=== PATIENT | female | born 1965 | race African-American/Black ===

== ENCOUNTER 2019-11-12 08:45 | Inpatient (IN) | payer MEDICARE, MEDICAID ==
[~2019-11-12] VITALS: Ht 177.8 cm; Wt 133.5 kg
[~2019-11-12 08:45] MED LIST: ALBU8HFA IH; AMLO10TA7 PO; FLUO-191 PO; LISI-661 PO; METO50 PO
[2019-11-12] MEDS ORDERED: IPRATROPIUM BROMIDE 0.5 MG/2.5 ML NEB SOLUTION NEB ONE ×3 (09:00→10:45)
[2019-11-12] MEDS ORDERED: ALBUTEROL SULFATE 2.5 MG/0.5 ML NEB SOLUTION NEB ONE (09:00)
[2019-11-12] MEDS ORDERED: ALBUTEROL SULFATE 5 MG/ML 20 ML NEB SOLN [BULK] NEB ONE ×2 (09:15→10:45)
[2019-11-12] MEDS ORDERED: MethylPREDNISolone SOD SUCC 125 MG/2 ML VIAL IVP ONE (10:45)
[2019-11-12] MEDS ORDERED: MAGNESIUM SULFATE 2 GM/WATER 50 ML IV ONE (11:00)
[2019-11-12 11:04] LABS: BASOPHILS % (AUTO) 1.4 % (0.0-2.0); HEMATOCRIT 37.4 % (36-46); HEMOGLOBIN 11.7 g/dL (12.0-16.0); LYMPHOCYTES # (AUTO) 3.6 K/uL (1.0-4.8); LYMPHOCYTES % (AUTO) 38.4 % (22.0-44.0); MEAN CORPUSCULAR HEMOGLOBIN 25.2 pg (26.0-34.0); MEAN CORPUSCULAR HGB CONC 31.4 G/dL (31.0-37.0); MEAN CORPUSCULAR VOLUME 80 fL (80-100); MONOCYTES # (AUTO) 0.8 K/uL (0.1-1.0); NEUTROPHILS # (AUTO) 4.9 K/uL (1.8-7.7); NEUTROPHILS % (AUTO) 51.2 % (40.0-70.0); PLATELET COUNT (AUTO) 246 K/uL (150-450); RED BLOOD CELL COUNT(AUTO) 4.65 MIL/uL (4.00-5.20)
[2019-11-12 11:13] LABS: CALCIUM, TOTAL 9.5 mg/dL (8.8-10.5); CREATININE 1.58 mg/dL (0.60-1.30); POTASSIUM 3.4 mmol/L (3.5-5.1)
[2019-11-12 11:18] LABS: ALBUMIN 3.6 g/dL (3.4-5.0); BILIRUBIN,TOTAL 0.7 mg/dL (0.1-1.0); TOTAL PROTEIN, SERUM 7.7 g/dL (6.4-8.2)
[2019-11-12] MEDS ORDERED: DOXYCYCLINE HYCLATE 100 MG in DEXTROSE 5%-WATER 100 ML IV ONE (12:00)
[2019-11-12] MEDS ORDERED: CefTRIAXone 1 GM/DEXTROSE 50 ML IV ONE (12:00)
[2019-11-12] MEDS ORDERED: ASPIRIN 325 MG EC TABLET PO ONE (12:15)
[2019-11-12 12:20] LABS: INFLUENZA TYPE A NEGATIVE FOR TYPE A (NEGATIVE); INFLUENZA TYPE B NEGATIVE FOR TYPE B (NEGATIVE)
[2019-11-12] MEDS ORDERED: BISACODYL 10 MG RECTAL RECTAL SUPPOSITORY PR PRN (13:00)
[2019-11-12] MEDS ORDERED: LORazepam 2 MG/ML VIAL IVP PRN (13:00)
[2019-11-12] MEDS ORDERED: POTASSIUM CHLORIDE 10% 40 MEQ/30 ML LIQUID UDCUP PO ONE (13:00)
[2019-11-12] MEDS ORDERED: ACETAMINOPHEN 325 MG TABLET PO PRN (13:00)
[2019-11-12] MEDS: HEPARIN SODIUM,PORCINE 5,000 UNITS/ML VIAL SQ SCH ×2 (15:29→23:08)
[2019-11-12 17:12] LABS: ABG A-A DIFF O2 32.8 mmHg (10-20.0); ABG BASE EXCESS -11.2 mmol/L (-2.0-3.0); ABG CARBOXYHEMOGLOBIN 0.7 % (0.0-1.5); ABG HCO3 16.6 mmol/L (22.0-26.0); ABG METHEMOGLOBIN 0.3 % (0.0-1.5); ABG OXYGEN CONTENT 16.4 mL/dL (15.0-23.0); ABG OXYGEN SATURATION 95.6 % (95.0-98.0); ABG OXYHEMOGLOBIN 94.6 % (94.0-100.0); ABG PCO2 29 mmHg (35-45); ABG PH 7.328 (7.35-7.450); ABG TOTAL HEMOGLOBIN 12.3 G/dL (12.0-18.0); O2 DEVICE,BLOOD GAS ROOM AIR (ROOM AIR); PO2, ARTERIAL BG 82.6 mmHg (84.0-92.0); SITE, BLOOD GAS RT RADIAL; SOURCE, BLOOD GAS ARTERIAL; TEMPERATURE, FAHRENHEIT, BG 98.6 FAHREN (96.0-98.6)
[2019-11-12] MEDS: MethylPREDNISolone SOD SUCC 125 MG/2 ML VIAL IVP SCH ×2 (18:12→23:07)
[2019-11-12] MEDS: ALBUTEROL SULFATE 2.5 MG/0.5 ML NEB SOLUTION NEB PRN (21:37)
[2019-11-12] MEDS: IPRATROPIUM BROMIDE 0.5 MG/2.5 ML NEB SOLUTION NEB PRN (21:37)
[2019-11-12 21:57] VITALS: BP 156/82
[2019-11-12 23:43] VITALS: BP 153/80
[2019-11-13] MEDS: IPRATROPIUM BROMIDE 0.5 MG/2.5 ML NEB SOLUTION NEB PRN ×2 (02:52→14:25)
[2019-11-13] MEDS: ALBUTEROL SULFATE 2.5 MG/0.5 ML NEB SOLUTION NEB PRN ×2 (02:52→14:25)
[2019-11-13 03:29] VITALS: BP 144/83
[2019-11-13] MEDS: MethylPREDNISolone SOD SUCC 125 MG/2 ML VIAL IVP SCH ×2 (06:16→11:53)
[2019-11-13] MEDS ORDERED: PNEUMOCOCCAL VACCINE POLYVALENT 0.5 ML VIAL [PPSV23] IM ONE (07:30)
[2019-11-13] MEDS ORDERED: INFLUENZA VIRUS VACCINE QVS 2019-20 (3YR+)/PF 60 MCG/0.5 ML SYRINGE IM ONE (07:30)
[2019-11-13 07:36] VITALS: BP 160/94
[2019-11-13] MEDS: FAMOTIDINE 20 MG TABLET PO SCH (08:06)
[2019-11-13] MEDS: ASPIRIN 81 MG CHEWABLE TABLET PO SCH (08:07)
[2019-11-13] MEDS: HEPARIN SODIUM,PORCINE 5,000 UNITS/ML VIAL SQ SCH ×2 (08:11→16:00)
[2019-11-13 11:23] VITALS: BP 162/108
[2019-11-13] MEDS: CefTRIAXone 1 GM/DEXTROSE 50 ML IV SCH (11:53)
[2019-11-13] MEDS ORDERED: FUROSEMIDE 20 MG/2 ML VIAL IVP SCH (12:45)
[2019-11-13] MEDS: CARVEDILOL 6.25 MG TABLET PO SCH ×2 (14:00→20:42)
[2019-11-13] MEDS: AZITHROMYCIN 500 MG/NS 250 ML IV SCH (14:02)
[2019-11-13 15:00] VITALS: BP 146/106
[2019-11-13] MEDS ORDERED: POTASSIUM CHLORIDE 20 MEQ ER TABLET PO PRN (17:45)
[2019-11-13] MEDS ORDERED: POTASSIUM CHL 10 MEQ/WATER 50 ML IV PRN (17:45)
[2019-11-13] MEDS: MethylPREDNISolone SOD SUCC 40 MG/ML VIAL IVP SCH (18:03)
[2019-11-13 19:52] VITALS: BP 133/90
[2019-11-13] MEDS: ALBUTEROL SULFATE 2.5 MG/0.5 ML NEB SOLUTION NEB SCH (20:07)
[2019-11-13] MEDS: IPRATROPIUM BROMIDE 0.5 MG/2.5 ML NEB SOLUTION NEB SCH (20:07)
[2019-11-13] MEDS: FUROSEMIDE 40 MG/4 ML VIAL IVP SCH (20:42)
[2019-11-13 23:37] VITALS: BP 146/92
[2019-11-14] MEDS: MethylPREDNISolone SOD SUCC 40 MG/ML VIAL IVP SCH ×5 (00:22→23:11)
[2019-11-14] MEDS: HEPARIN SODIUM,PORCINE 5,000 UNITS/ML VIAL SQ SCH ×3 (00:23→21:31)
[2019-11-14] MEDS: IPRATROPIUM BROMIDE 0.5 MG/2.5 ML NEB SOLUTION NEB SCH ×4 (00:41→19:38)
[2019-11-14] MEDS: ALBUTEROL SULFATE 2.5 MG/0.5 ML NEB SOLUTION NEB SCH ×4 (00:41→19:38)
[2019-11-14 04:11] VITALS: BP 145/93
[2019-11-14 06:46] LABS: BASOPHILS % (AUTO) 0.7 % (0.0-2.0); EOSINOPHILS % (AUTO) 0 % (1.0-6.0); HEMATOCRIT 33.6 % (36-46); HEMOGLOBIN 10.8 g/dL (12.0-16.0); LYMPHOCYTES # (AUTO) 1.5 K/uL (1.0-4.8); MEAN CORPUSCULAR HEMOGLOBIN 25.5 pg (26.0-34.0); MEAN CORPUSCULAR HGB CONC 32.2 G/dL (31.0-37.0); MEAN CORPUSCULAR VOLUME 79 fL (80-100); MONOCYTES # (AUTO) 0.4 K/uL (0.1-1.0); MONOCYTES % (AUTO) 2.4 % (2.0-9.0); NEUTROPHILS # (AUTO) 14.7 K/uL (1.8-7.7); PLATELET COUNT (AUTO) 277 K/uL (150-450); RED BLOOD CELL COUNT(AUTO) 4.23 MIL/uL (4.00-5.20); RED CELL DISTRIBUTION WIDTH 15.4 % (11.5-14.5)
[2019-11-14 06:57] LABS: CALCIUM, TOTAL 9.5 mg/dL (8.8-10.5); CREATININE 1.8 mg/dL (0.60-1.30); POTASSIUM 4.6 mmol/L (3.5-5.1)
[2019-11-14 07:07] LABS: NEUTROPHILS % (AUTO) 87.9 % (40.0-70.0)
[2019-11-14 08:01] VITALS: BP 128/67
[2019-11-14] MEDS: CARVEDILOL 6.25 MG TABLET PO SCH ×2 (08:41→21:31)
[2019-11-14] MEDS: ASPIRIN 81 MG CHEWABLE TABLET PO SCH (08:42)
[2019-11-14] MEDS: FUROSEMIDE 40 MG/4 ML VIAL IVP SCH (08:42)
[2019-11-14] MEDS: FAMOTIDINE 20 MG TABLET PO SCH (08:42)
[2019-11-14 11:38] VITALS: BP 141/94
[2019-11-14] MEDS: CefTRIAXone 1 GM/DEXTROSE 50 ML IV SCH (12:22)
[2019-11-14] MEDS: AZITHROMYCIN 500 MG/NS 250 ML IV SCH (13:56)
[2019-11-14 16:06] VITALS: BP 132/90
[2019-11-14 19:35] VITALS: BP 147/96
[2019-11-14 23:41] VITALS: BP 127/90
[2019-11-15] MEDS: IPRATROPIUM BROMIDE 0.5 MG/2.5 ML NEB SOLUTION NEB SCH ×4 (01:05→20:11)
[2019-11-15] MEDS: ALBUTEROL SULFATE 2.5 MG/0.5 ML NEB SOLUTION NEB SCH ×4 (01:05→20:11)
[2019-11-15 04:24] VITALS: BP 154/94
[2019-11-15] MEDS: MethylPREDNISolone SOD SUCC 40 MG/ML VIAL IVP SCH (06:02)
[2019-11-15 06:44] LABS: BASOPHILS % (AUTO) 0.6 % (0.0-2.0); EOSINOPHILS % (AUTO) 0 % (1.0-6.0); HEMATOCRIT 34.3 % (36-46); HEMOGLOBIN 10.9 g/dL (12.0-16.0); LYMPHOCYTES # (AUTO) 1.4 K/uL (1.0-4.8); LYMPHOCYTES % (AUTO) 10.4 % (22.0-44.0); MEAN CORPUSCULAR HEMOGLOBIN 25.1 pg (26.0-34.0); MEAN CORPUSCULAR HGB CONC 31.9 G/dL (31.0-37.0); MEAN CORPUSCULAR VOLUME 79 fL (80-100); MONOCYTES # (AUTO) 0.4 K/uL (0.1-1.0); MONOCYTES % (AUTO) 3.3 % (2.0-9.0); NEUTROPHILS # (AUTO) 11.6 K/uL (1.8-7.7); NEUTROPHILS % (AUTO) 85.7 % (40.0-70.0); PLATELET COUNT (AUTO) 265 K/uL (150-450); RED BLOOD CELL COUNT(AUTO) 4.35 MIL/uL (4.00-5.20); RED CELL DISTRIBUTION WIDTH 15.3 % (11.5-14.5)
[2019-11-15 07:10] LABS: CALCIUM, TOTAL 9.1 mg/dL (8.8-10.5); CREATININE 1.79 mg/dL (0.60-1.30); POTASSIUM 4.2 mmol/L (3.5-5.1)
[2019-11-15 07:33] LABS: PLATELET MORPHOLOGY COMMENT GIANT PLTS PRESENT
[2019-11-15 08:29] VITALS: BP 140/97
[2019-11-15] MEDS ORDERED: FUROSEMIDE 40 MG/4 ML VIAL IVP SCH (09:00)
[2019-11-15] MEDS: ASPIRIN 81 MG CHEWABLE TABLET PO SCH (09:28)
[2019-11-15] MEDS: HEPARIN SODIUM,PORCINE 5,000 UNITS/ML VIAL SQ SCH ×2 (09:28→21:25)
[2019-11-15] MEDS: FAMOTIDINE 20 MG TABLET PO SCH (09:28)
[2019-11-15] MEDS: CARVEDILOL 6.25 MG TABLET PO SCH (09:28)
[2019-11-15] MEDS: CefTRIAXone 1 GM/DEXTROSE 50 ML IV SCH (11:05)
[2019-11-15 11:59] VITALS: BP 145/92
[2019-11-15] MEDS: AZITHROMYCIN 500 MG/NS 250 ML IV SCH (13:00)
[2019-11-15 15:54] VITALS: BP 144/94
[2019-11-15 19:38] VITALS: BP 140/89
[2019-11-15] MEDS: CARVEDILOL 12.5 MG TABLET PO SCH (21:26)
[2019-11-15] MEDS: FUROSEMIDE 40 MG TABLET PO SCH (21:26)
[2019-11-15 23:19] VITALS: BP 137/81
[2019-11-16] MEDS: ALBUTEROL SULFATE 2.5 MG/0.5 ML NEB SOLUTION NEB SCH ×2 (03:07→12:32)
[2019-11-16] MEDS: IPRATROPIUM BROMIDE 0.5 MG/2.5 ML NEB SOLUTION NEB SCH ×2 (03:07→12:32)
[2019-11-16 05:23] VITALS: BP 128/92
[2019-11-16 07:06] LABS: BILIRUBIN,TOTAL 0.3 mg/dL (0.1-1.0); CALCIUM, TOTAL 9.2 mg/dL (8.8-10.5); CREATININE 1.62 mg/dL (0.60-1.30); POTASSIUM 3.6 mmol/L (3.5-5.1); TOTAL PROTEIN, SERUM 6.6 g/dL (6.4-8.2)
[2019-11-16 08:13] VITALS: BP 130/76
[2019-11-16] MEDS: CARVEDILOL 12.5 MG TABLET PO SCH (08:19)
[2019-11-16] MEDS: FAMOTIDINE 20 MG TABLET PO SCH (08:19)
[2019-11-16] MEDS: FUROSEMIDE 40 MG TABLET PO SCH (08:19)
[2019-11-16] MEDS: HEPARIN SODIUM,PORCINE 5,000 UNITS/ML VIAL SQ SCH (08:19)
[2019-11-16] MEDS: ASPIRIN 81 MG CHEWABLE TABLET PO SCH (08:20)
[2019-11-16 11:04] VITALS: BP 139/72
[2019-11-16] MEDS: CefTRIAXone 1 GM/DEXTROSE 50 ML IV SCH (12:10)
[2019-11-16] MEDS ORDERED: FURO40 PO (12:18)
[2019-11-16] MEDS ORDERED: CARV12 PO (12:18)
[2019-11-16] MEDS ORDERED: ALBU8HFA IH (12:19)
[2019-11-16] MEDS ORDERED: ASPI81 PO (12:19)
[2019-11-16] MEDS: AZITHROMYCIN 500 MG/NS 250 ML IV SCH (13:00)
== END 2019-11-16 14:00 | disposition home or self-care (01) | DRG 917 ==
LOC: EMS 08:46 → 5S 21:00
PROVIDERS: ADMIT Internal Medicine; ATTEND Internal Medicine
DX: T43.621A Poisoning by amphetamines, accidental (unintentional), initial encounter (principal); J18.9 Pneumonia, unspecified organism; J96.01 Acute respiratory failure with hypoxia; I50.43 Acute on chronic combined systolic (congestive) and diastolic (congestive) heart failure; I13.0 Hypertensive heart and chronic kidney disease with heart failure and stage 1 through stage 4 chronic kidney disease, or unspecified chronic kidney disease; J45.901 Unspecified asthma with (acute) exacerbation; N17.9 Acute kidney failure, unspecified; J91.8 Pleural effusion in other conditions classified elsewhere; J44.0 Chronic obstructive pulmonary disease with (acute) lower respiratory infection; J44.1 Chronic obstructive pulmonary disease with (acute) exacerbation; I42.8 Other cardiomyopathies; R74.0 Nonspecific elevation of levels of transaminase and lactic acid dehydrogenase [LDH]; E78.5 Hyperlipidemia, unspecified; E11.22 Type 2 diabetes mellitus with diabetic chronic kidney disease; N18.9 Chronic kidney disease, unspecified; E66.01 Morbid (severe) obesity due to excess calories; F15.90 Other stimulant use, unspecified, uncomplicated; F32.9 Major depressive disorder, single episode, unspecified; F41.9 Anxiety disorder, unspecified; Z98.51 Tubal ligation status; Z83.3 Family history of diabetes mellitus; Z82.49 Family history of ischemic heart disease and other diseases of the circulatory system; Z87.891 Personal history of nicotine dependence; Z99.81 Dependence on supplemental oxygen; Z91.19 Patient's noncompliance with other medical treatment and regimen; Y92.89 Other specified places as the place of occurrence of the external cause
CPT/HCPCS: 71250; 82805; 87040; 87804; 93005; 93306; 94640; 99291; J0456; J0696; J1644; J1940; J2920; J2930; J3475; J3490; J7060

== ENCOUNTER 2020-04-05 09:19 | Emergency (ER) | payer BC, MEDICAID ==
[~2020-04-05] VITALS: Ht 170.2 cm; Wt 136.4 kg
[~2020-04-05 09:19] MED LIST changes: -AMLO10TA7 PO; +ASPI-728 PO; +CARV12 PO; +CEFU250T87 PO; +FURO40 PO; +LISI-660 PO; -LISI-661 PO; -METO50 PO
[2020-04-05 10:50] LABS: GLUCOSE,POINT OF CARE 265 MG/DL (70-110)
[2020-04-05 10:52] VITALS: BP 157/98
[2020-04-05 12:16] LABS: BASOPHILS % (AUTO) 0.5 % (0.0-2.0); EOSINOPHILS % (AUTO) 3.6 % (1.0-6.0); HEMATOCRIT 34.3 % (36-46); HEMOGLOBIN 10.9 g/dL (12.0-16.0); LYMPHOCYTES # (AUTO) 2.5 K/uL (1.0-4.8); LYMPHOCYTES % (AUTO) 27.5 % (22.0-44.0); MEAN CORPUSCULAR HEMOGLOBIN 26.4 pg (26.0-34.0); MEAN CORPUSCULAR HGB CONC 31.9 G/dL (31.0-37.0); MEAN CORPUSCULAR VOLUME 83 fL (80-100); MONOCYTES # (AUTO) 0.7 K/uL (0.1-1.0); MONOCYTES % (AUTO) 8.2 % (2.0-9.0); NEUTROPHILS # (AUTO) 5.4 K/uL (1.8-7.7); NEUTROPHILS % (AUTO) 60.2 % (40.0-70.0); PLATELET COUNT (AUTO) 280 K/uL (150-450); RED BLOOD CELL COUNT(AUTO) 4.14 MIL/uL (4.00-5.20); RED CELL DISTRIBUTION WIDTH 16.4 % (11.5-14.5)
[2020-04-05 12:26] LABS: CALCIUM, TOTAL 8.9 mg/dL (8.8-10.5); CREATININE 1.43 mg/dL (0.60-1.30); POTASSIUM 3.7 mmol/L (3.5-5.1)
[2020-04-05 12:32] LABS: APPEARANCE,URINE CLOUDY (CLEAR); BILIRUBIN,URINE NEGATIVE (NEGATIVE); GLUCOSE, URINE (UA) NEGATIVE (NEGATIVE); KETONES,URINE NEGATIVE (NEGATIVE); LEUKOCYTE ESTERASE ,URINE SMALL (NEGATIVE); NITRATE,URINE NEGATIVE (NEGATIVE); OCCULT BLOOD,URINE TRACE (NEGATIVE); PROTEIN,URINE POS 1+ (NEGATIVE)
[2020-04-05 12:32] LABS: ALBUMIN 3.2 g/dL (3.4-5.0); BILIRUBIN,TOTAL 1.1 mg/dL (0.1-1.0); TOTAL PROTEIN, SERUM 7.2 g/dL (6.4-8.2)
[2020-04-05 12:49] LABS: BACTERIA,URINE Moderate /HPF (None Seen); SQUAMOUS EPITHELIAL CELL,UR Many /LPF (None Seen)
[2020-04-05 14:03] LABS: D-DIMER 1.02 mg/L FEU (0.00-0.50)
[2020-04-05 14:06] LABS: C-REACTIVE PROTEIN QUANT 0.64 mg/dL (0.00-0.30)
== END 2020-04-05 14:20 | disposition left against medical advice (07) ==
LOC: EMS 09:20
DX: D64.9 Anemia, unspecified (principal); R79.89 Other specified abnormal findings of blood chemistry; R06.03 Acute respiratory distress; Z03.818 Encounter for observation for suspected exposure to other biological agents ruled out; F32.9 Major depressive disorder, single episode, unspecified; I11.9 Hypertensive heart disease without heart failure; Z87.891 Personal history of nicotine dependence
CPT/HCPCS: 82728; 83615; 85379; 85384; 86140; 87086; 93005

== ENCOUNTER 2020-04-29 00:41 | Inpatient (IN) | payer MEDICARE, MEDICAID ==
[~2020-04-29] VITALS: Ht 172.7 cm; Wt 130.8 kg
[2020-04-29] MEDS ORDERED: ALBUTEROL SULFATE HFA 90 MCG/PUFF 8 GM INHALER IH ONE (01:30)
[2020-04-29 02:02] LABS: ABG A-A DIFF O2 181.8 mmHg (10-20.0); ABG BASE EXCESS -0.2 mmol/L (-2.0-3.0); ABG CARBOXYHEMOGLOBIN 0.8 % (0.0-1.5); ABG HCO3 24.5 mmol/L (22.0-26.0); ABG METHEMOGLOBIN 0.2 % (0.0-1.5); ABG OXYGEN CONTENT 16.2 mL/dL (15.0-23.0); ABG OXYGEN SATURATION 96.4 % (95.0-98.0); ABG OXYHEMOGLOBIN 95.4 % (94.0-100.0); ABG PCO2 37 mmHg (35-45); ABG PH 7.429 (7.35-7.450); O2 DEVICE,BLOOD GAS CANNULA (ROOM AIR); PO2, ARTERIAL BG 89.4 mmHg (84.0-92.0); SITE, BLOOD GAS LFT RADIAL; SOURCE, BLOOD GAS ARTERIAL; TEMPERATURE, FAHRENHEIT, BG 98.6 FAHREN (96.0-98.6)
[2020-04-29 02:03] LABS: CALCIUM, TOTAL 8.7 mg/dL (8.8-10.5); CREATININE 1.57 mg/dL (0.60-1.30); POTASSIUM 4.1 mmol/L (3.5-5.1)
[2020-04-29 02:07] LABS: EOSINOPHILS % (AUTO) 1.6 % (1.0-6.0); HEMATOCRIT 36.9 % (36-46); HEMOGLOBIN 11.3 g/dL (12.0-16.0); LYMPHOCYTES # (AUTO) 1.5 K/uL (1.0-4.8); LYMPHOCYTES % (AUTO) 17.9 % (22.0-44.0); MEAN CORPUSCULAR HEMOGLOBIN 25.9 pg (26.0-34.0); MEAN CORPUSCULAR HGB CONC 30.8 G/dL (31.0-37.0); MEAN CORPUSCULAR VOLUME 84 fL (80-100); MONOCYTES # (AUTO) 0.9 K/uL (0.1-1.0); MONOCYTES % (AUTO) 11.3 % (2.0-9.0); NEUTROPHILS # (AUTO) 5.5 K/uL (1.8-7.7); NEUTROPHILS % (AUTO) 68.2 % (40.0-70.0); PLATELET COUNT (AUTO) 236 K/uL (150-450); RED BLOOD CELL COUNT(AUTO) 4.37 MIL/uL (4.00-5.20)
[2020-04-29 02:20] LABS: ALBUMIN 3.3 g/dL (3.4-5.0); BILIRUBIN,TOTAL 1.6 mg/dL (0.1-1.0); C-REACTIVE PROTEIN QUANT 0.72 mg/dL (0.00-0.30); TOTAL PROTEIN, SERUM 7.2 g/dL (6.4-8.2)
[2020-04-29] MEDS ORDERED: ASPIRIN 81 MG CHEWABLE TABLET PO ONE (02:30)
[2020-04-29] MEDS ORDERED: FUROSEMIDE 40 MG/4 ML VIAL IVP ONE (02:45)
[2020-04-29] MEDS ORDERED: 0.9% SODIUM CHLORIDE 10 ML SYRINGE IVP PRN (03:00)
[2020-04-29] MEDS ORDERED: ACETAMINOPHEN 325 MG TABLET PO PRN (03:00)
[2020-04-29 03:21] LABS: AMPHET/METH SCREEN,URINE NEGATIVE (NEGATIVE); BARBITURATE SCREEN, URINE NEGATIVE (NEGATIVE); BENZODIAZEPINES SCREEN,URINE NEGATIVE (NEGATIVE); CANNABINOID SCREEN,URINE NEGATIVE (NEGATIVE); COCAINE SCREEN,URINE NEGATIVE (NEGATIVE); METHADONE SCREEN, URINE NEGATIVE (NEGATIVE); OPIATE SCREEN,URINE NEGATIVE (NEGATIVE)
[2020-04-29 03:36] LABS: PHENCYCLIDINE SCREEN,URINE NEGATIVE (NEGATIVE)
[2020-04-29 06:18] VITALS: BP 163/96
[2020-04-29] MEDS ORDERED: DEXTROSE 50%-WATER 25 GM/50 ML SYRINGE IVP PRN (08:15)
[2020-04-29 09:20] VITALS: BP 158/99
[2020-04-29] MEDS: FUROSEMIDE 20 MG/2 ML VIAL IVP SCH ×2 (11:02→20:11)
[2020-04-29] MEDS: ASPIRIN 81 MG CHEWABLE TABLET PO SCH (11:02)
[2020-04-29] MEDS: DOCUSATE SODIUM 100 MG CAPSULE PO SCH ×2 (11:02→20:11)
[2020-04-29] MEDS: CARVEDILOL 6.25 MG TABLET PO SCH ×2 (11:02→20:11)
[2020-04-29] MEDS: LOSARTAN POTASSIUM 25 MG TABLET PO SCH ×2 (11:03→20:11)
[2020-04-29] MEDS: FAMOTIDINE 20 MG TABLET PO SCH (11:03)
[2020-04-29 12:29] VITALS: BP 111/84
[2020-04-29] MEDS: INSULIN LISPRO 100 UNITS/ML SQ PRN ×3 (13:36→20:45)
[2020-04-29 16:24] VITALS: BP 138/93
[2020-04-29] MEDS: HEPARIN SODIUM,PORCINE 5,000 UNITS/ML VIAL SQ SCH (17:56)
[2020-04-29 19:48] LABS: GLUCOMETER DEV NAME(LOC) 5S.2A; GLUCOSE,POINT OF CARE 174 MG/DL (70-110)
[2020-04-29 20:33] LABS: GLUCOMETER DEV NAME(LOC) 5N.3; GLUCOSE,POINT OF CARE 204 MG/DL (70-110)
[2020-04-29 20:33] LABS: GLUCOMETER DEV NAME(LOC) 5N.3; GLUCOSE,POINT OF CARE 211 MG/DL (70-110)
[2020-04-29 20:45] VITALS: BP 150/111
[2020-04-30] VITALS (7 sets, daily range): BP systolic 120–156; BP diastolic 9–99
[2020-04-30] MEDS: ACETAMINOPHEN 325 MG TABLET PO PRN ×3 (01:17→21:25)
[2020-04-30] MEDS: INSULIN LISPRO 100 UNITS/ML SQ PRN ×3 (05:32→21:23)
[2020-04-30 06:10] LABS: GLUCOMETER DEV NAME(LOC) 5S.2A; GLUCOSE,POINT OF CARE 196 MG/DL (70-110)
[2020-04-30 06:51] LABS: GLUCOMETER DEV NAME(LOC) 5N.3; GLUCOSE,POINT OF CARE 193 MG/DL (70-110)
[2020-04-30] MEDS: FUROSEMIDE 20 MG/2 ML VIAL IVP SCH ×2 (08:29→21:25)
[2020-04-30] MEDS: DOCUSATE SODIUM 100 MG CAPSULE PO SCH ×2 (08:30→21:25)
[2020-04-30] MEDS: HEPARIN SODIUM,PORCINE 5,000 UNITS/ML VIAL SQ SCH ×3 (08:30→16:00)
[2020-04-30] MEDS: CARVEDILOL 6.25 MG TABLET PO SCH ×2 (08:30→21:25)
[2020-04-30] MEDS: ASPIRIN 81 MG CHEWABLE TABLET PO SCH (08:30)
[2020-04-30] MEDS: LOSARTAN POTASSIUM 25 MG TABLET PO SCH ×2 (08:30→21:26)
[2020-04-30] MEDS: FAMOTIDINE 20 MG TABLET PO SCH (08:31)
[2020-04-30] MEDS: ALPRAZolam 0.5 MG TABLET PO PRN (16:00)
[2020-05-01] VITALS (8 sets, daily range): BP systolic 102–150; BP diastolic 62–97
[2020-05-01] MEDS: HEPARIN SODIUM,PORCINE 5,000 UNITS/ML VIAL SQ SCH ×2 (00:13→08:48)
[2020-05-01] MEDS: ALPRAZolam 0.5 MG TABLET PO PRN ×3 (00:18→20:34)
[2020-05-01] MEDS: INSULIN LISPRO 100 UNITS/ML SQ PRN ×3 (05:46→21:03)
[2020-05-01 07:46] LABS: GLUCOMETER DEV NAME(LOC) 5N.3; GLUCOSE,POINT OF CARE 176 MG/DL (70-110)
[2020-05-01 07:47] LABS: GLUCOMETER DEV NAME(LOC) 5N.3; GLUCOSE,POINT OF CARE 148 MG/DL (70-110)
[2020-05-01 07:47] LABS: GLUCOMETER DEV NAME(LOC) 5N.3; GLUCOSE,POINT OF CARE 176 MG/DL (70-110)
[2020-05-01 08:31] LABS: APPEARANCE,URINE CLOUDY (CLEAR); BILIRUBIN,URINE NEGATIVE (NEGATIVE); GLUCOSE, URINE (UA) NEGATIVE (NEGATIVE); KETONES,URINE NEGATIVE (NEGATIVE); LEUKOCYTE ESTERASE ,URINE TRACE (NEGATIVE); NITRATE,URINE NEGATIVE (NEGATIVE); OCCULT BLOOD,URINE MODERATE (NEGATIVE); PROTEIN,URINE SEE CONFIRM (NEGATIVE)
[2020-05-01 08:42] LABS: SULFOSALICYLIC ACID,URINE 3+ (Negative)
[2020-05-01 08:43] LABS: AMORPHOUS SEDIMENT,UR Moderate /LPF (None Seen); BACTERIA,URINE None Seen /HPF (None Seen); SQUAMOUS EPITHELIAL CELL,UR Moderate /LPF (None Seen); WBC,URINE 0-2 /HPF (0-5)
[2020-05-01] MEDS: FAMOTIDINE 20 MG TABLET PO SCH (08:48)
[2020-05-01] MEDS: ASPIRIN 81 MG CHEWABLE TABLET PO SCH (08:49)
[2020-05-01] MEDS: LOSARTAN POTASSIUM 25 MG TABLET PO SCH ×2 (08:49→20:34)
[2020-05-01] MEDS: DOCUSATE SODIUM 100 MG CAPSULE PO SCH ×2 (08:49→21:00)
[2020-05-01] MEDS: FUROSEMIDE 20 MG/2 ML VIAL IVP SCH (08:49)
[2020-05-01] MEDS: CARVEDILOL 6.25 MG TABLET PO SCH ×2 (08:49→20:34)
[2020-05-01] MEDS ORDERED: ASPIRIN 81 MG CHEWABLE TABLET PO SCH (09:00)
[2020-05-01] MEDS ORDERED: CefTRIAXone 1 GM/DEXTROSE 50 ML IV SCH (10:00)
[2020-05-01] MEDS ORDERED: SODIUM CHLORIDE 0.9% 250 ML IV ONE ×2 (10:48→22:25)
[2020-05-01 10:58] LABS: D-DIMER 3.05 mg/L FEU (0.00-0.50)
[2020-05-01] MEDS ORDERED: HEPARIN SODIUM,PORCINE 5,000 UNITS/ML VIAL IVP PRN (11:30)
[2020-05-01 11:37] LABS: C-REACTIVE PROTEIN QUANT 2.25 mg/dL (0.00-0.30)
[2020-05-01 12:20] LABS: BASOPHILS % (AUTO) 0.8 % (0.0-2.0); EOSINOPHILS % (AUTO) 0 % (1.0-6.0); HEMATOCRIT 36.6 % (36-46); HEMOGLOBIN 11.5 g/dL (12.0-16.0); INR 1.2 (0.9-1.1); LYMPHOCYTES # (AUTO) 1.6 K/uL (1.0-4.8); LYMPHOCYTES % (AUTO) 28.1 % (22.0-44.0); MEAN CORPUSCULAR HEMOGLOBIN 26.4 pg (26.0-34.0); MEAN CORPUSCULAR HGB CONC 31.6 G/dL (31.0-37.0); MEAN CORPUSCULAR VOLUME 84 fL (80-100); MONOCYTES # (AUTO) 0.6 K/uL (0.1-1.0); MONOCYTES % (AUTO) 11.2 % (2.0-9.0); NEUTROPHILS # (AUTO) 3.3 K/uL (1.8-7.7); NEUTROPHILS % (AUTO) 59.9 % (40.0-70.0); PLATELET COUNT (AUTO) 171 K/uL (150-450); PROTHROMBIN TIME 11.8 SEC (9.4-11.6); RED BLOOD CELL COUNT(AUTO) 4.37 MIL/uL (4.00-5.20); RED CELL DISTRIBUTION WIDTH 18.1 % (11.5-14.5)
[2020-05-01] MEDS: DEXAMETHASONE SOD PHOS 4 MG/ML VIAL IVP SCH (12:28)
[2020-05-01 13:21] LABS: ALBUMIN 3.2 g/dL (3.4-5.0); BILIRUBIN,TOTAL 2.7 mg/dL (0.1-1.0); CALCIUM, TOTAL 8.8 mg/dL (8.8-10.5); CREATININE 1.56 mg/dL (0.60-1.30); POTASSIUM 4.3 mmol/L (3.5-5.1); TOTAL PROTEIN, SERUM 7.2 g/dL (6.4-8.2)
[2020-05-01] MEDS: HEPARIN SODIUM 25000 UNITS/D5W 250 ML IV PRN (17:18)
[2020-05-02] VITALS (8 sets, daily range): BP systolic 110–131; BP diastolic 63–92
[2020-05-02 01:27] LABS: GLUCOMETER DEV NAME(LOC) 5S.2A; GLUCOSE,POINT OF CARE 293 MG/DL (70-110)
[2020-05-02 01:27] LABS: GLUCOMETER DEV NAME(LOC) 5S.2A; GLUCOSE,POINT OF CARE 232 MG/DL (70-110)
[2020-05-02] MEDS: INSULIN LISPRO 100 UNITS/ML SQ PRN ×4 (05:23→21:32)
[2020-05-02 07:46] LABS: GLUCOMETER DEV NAME(LOC) 5S.2A; GLUCOSE,POINT OF CARE 229 MG/DL (70-110)
[2020-05-02] MEDS: FUROSEMIDE 40 MG TABLET PO SCH (08:03)
[2020-05-02] MEDS: FAMOTIDINE 20 MG TABLET PO SCH (08:03)
[2020-05-02] MEDS: CARVEDILOL 6.25 MG TABLET PO SCH ×2 (08:03→21:45)
[2020-05-02] MEDS: LOSARTAN POTASSIUM 25 MG TABLET PO SCH ×2 (08:03→21:46)
[2020-05-02] MEDS: DOCUSATE SODIUM 100 MG CAPSULE PO SCH ×2 (08:04→21:00)
[2020-05-02] MEDS: ASPIRIN 81 MG CHEWABLE TABLET PO SCH (08:04)
[2020-05-02] MEDS: DEXAMETHASONE SOD PHOS 4 MG/ML VIAL IVP SCH (09:41)
[2020-05-02 11:14] LABS: BASOPHILS % (AUTO) 1.2 % (0.0-2.0); EOSINOPHILS % (AUTO) 0 % (1.0-6.0); HEMATOCRIT 36.7 % (36-46); HEMOGLOBIN 11.4 g/dL (12.0-16.0); LYMPHOCYTES # (AUTO) 1.5 K/uL (1.0-4.8); LYMPHOCYTES % (AUTO) 29.5 % (22.0-44.0); MEAN CORPUSCULAR HEMOGLOBIN 26.2 pg (26.0-34.0); MEAN CORPUSCULAR HGB CONC 31.1 G/dL (31.0-37.0); MEAN CORPUSCULAR VOLUME 84 fL (80-100); MONOCYTES # (AUTO) 0.9 K/uL (0.1-1.0); NEUTROPHILS # (AUTO) 2.7 K/uL (1.8-7.7); NEUTROPHILS % (AUTO) 52.3 % (40.0-70.0); PLATELET COUNT (AUTO) 201 K/uL (150-450); RED BLOOD CELL COUNT(AUTO) 4.35 MIL/uL (4.00-5.20); RED CELL DISTRIBUTION WIDTH 17.6 % (11.5-14.5)
[2020-05-02 11:45] LABS: D-DIMER 1.2 mg/L FEU (0.00-0.50)
[2020-05-02 12:13] LABS: C-REACTIVE PROTEIN QUANT 1.04 mg/dL (0.00-0.30); CALCIUM, TOTAL 8.9 mg/dL (8.8-10.5); CREATININE 1.45 mg/dL (0.60-1.30); POTASSIUM 4.7 mmol/L (3.5-5.1)
[2020-05-02] MEDS ORDERED: HEPARIN SODIUM,PORCINE 5,000 UNITS/ML VIAL IVP PRN (13:39)
[2020-05-02 14:15] LABS: SOURCE, BLOOD GAS ARTERIAL; TEMPERATURE, FAHRENHEIT, BG 98.6 FAHREN (96.0-98.6)
[2020-05-02] MEDS: HEPARIN SODIUM 25000 UNITS/D5W 250 ML IV PRN (14:35)
[2020-05-02 15:29] LABS: ABG A-A DIFF O2 127.9 mmHg (10-20.0); ABG BASE EXCESS 2.7 mmol/L (-2.0-3.0); ABG CARBOXYHEMOGLOBIN 1.8 % (0.0-1.5); ABG HCO3 26.4 mmol/L (22.0-26.0); ABG METHEMOGLOBIN 0.4 % (0.0-1.5); ABG OXYGEN CONTENT 16.2 mL/dL (15.0-23.0); ABG OXYGEN SATURATION 94.2 % (95.0-98.0); ABG OXYHEMOGLOBIN 92.1 % (94.0-100.0); ABG PCO2 45 mmHg (35-45); ABG TOTAL HEMOGLOBIN 12.5 G/dL (12.0-18.0); PO2, ARTERIAL BG 76.1 mmHg (84.0-92.0)
[2020-05-02] MEDS: ALPRAZolam 0.5 MG TABLET PO PRN ×2 (15:31→23:32)
[2020-05-02 15:32] LABS: O2 DEVICE,BLOOD GAS CANNULA (ROOM AIR); SITE, BLOOD GAS LFT RADIAL
[2020-05-02 17:01] LABS: BILIRUBIN,DIRECT 0.5 mg/dL (0.00-0.20); BILIRUBIN,TOTAL 2.1 mg/dL (0.1-1.0); TOTAL PROTEIN, SERUM 6.9 g/dL (6.4-8.2)
[2020-05-03] VITALS: BP 110/78
[2020-05-03] MEDS: ACETAMINOPHEN 325 MG TABLET PO PRN ×2 (00:30→10:06)
[2020-05-03 03:04] LABS: GLUCOMETER DEV NAME(LOC) 5N.3; GLUCOSE,POINT OF CARE 242 MG/DL (70-110)
[2020-05-03 03:04] LABS: GLUCOMETER DEV NAME(LOC) 5N.3; GLUCOSE,POINT OF CARE 237 MG/DL (70-110)
[2020-05-03 03:04] LABS: GLUCOMETER DEV NAME(LOC) 5N.3; GLUCOSE,POINT OF CARE 193 MG/DL (70-110)
[2020-05-03 04:27] VITALS: BP 117/73
[2020-05-03] MEDS: INSULIN LISPRO 100 UNITS/ML SQ PRN ×4 (07:00→22:51)
[2020-05-03 08:07] LABS: BASOPHILS % (AUTO) 0.5 % (0.0-2.0); EOSINOPHILS % (AUTO) 0 % (1.0-6.0); HEMATOCRIT 35.4 % (36-46); HEMOGLOBIN 11.3 g/dL (12.0-16.0); LYMPHOCYTES # (AUTO) 1.4 K/uL (1.0-4.8); LYMPHOCYTES % (AUTO) 20.7 % (22.0-44.0); MEAN CORPUSCULAR HEMOGLOBIN 26.9 pg (26.0-34.0); MEAN CORPUSCULAR HGB CONC 31.8 G/dL (31.0-37.0); MEAN CORPUSCULAR VOLUME 84 fL (80-100); MONOCYTES # (AUTO) 0.4 K/uL (0.1-1.0); MONOCYTES % (AUTO) 6.5 % (2.0-9.0); NEUTROPHILS # (AUTO) 4.7 K/uL (1.8-7.7); NEUTROPHILS % (AUTO) 72.3 % (40.0-70.0); PLATELET COUNT (AUTO) 193 K/uL (150-450); RED BLOOD CELL COUNT(AUTO) 4.19 MIL/uL (4.00-5.20); RED CELL DISTRIBUTION WIDTH 17.8 % (11.5-14.5)
[2020-05-03] MEDS: ALPRAZolam 0.5 MG TABLET PO PRN ×2 (08:19→20:53)
[2020-05-03] MEDS: FAMOTIDINE 20 MG TABLET PO SCH (08:19)
[2020-05-03] MEDS: CARVEDILOL 6.25 MG TABLET PO SCH ×2 (08:20→20:53)
[2020-05-03] MEDS: DOCUSATE SODIUM 100 MG CAPSULE PO SCH ×2 (08:20→20:53)
[2020-05-03] MEDS: ASPIRIN 81 MG CHEWABLE TABLET PO SCH (08:20)
[2020-05-03] MEDS: LOSARTAN POTASSIUM 25 MG TABLET PO SCH ×2 (08:21→20:53)
[2020-05-03] MEDS: ALBUTEROL SULFATE HFA 90 MCG/PUFF 8 GM INHALER IH PRN (08:22)
[2020-05-03 08:35] VITALS: BP 131/72
[2020-05-03] MEDS: HEPARIN SODIUM 25000 UNITS/D5W 250 ML IV PRN (08:36)
[2020-05-03 08:42] LABS: D-DIMER 0.63 mg/L FEU (0.00-0.50)
[2020-05-03 09:02] LABS: ALBUMIN 2.7 g/dL (3.4-5.0); BILIRUBIN,TOTAL 1.9 mg/dL (0.1-1.0); C-REACTIVE PROTEIN QUANT 0.63 mg/dL (0.00-0.30); CALCIUM, TOTAL 8.6 mg/dL (8.8-10.5); CREATININE 1.52 mg/dL (0.60-1.30); POTASSIUM 4.2 mmol/L (3.5-5.1); THYROID STIMULATING HORMONE 1.47 uIU/mL (0.36-3.74); TOTAL PROTEIN, SERUM 6.7 g/dL (6.4-8.2)
[2020-05-03] MEDS: DEXAMETHASONE SOD PHOS 4 MG/ML VIAL IVP SCH (10:05)
[2020-05-03] MEDS: FUROSEMIDE 40 MG TABLET PO SCH (10:06)
[2020-05-03 11:54] VITALS: BP 121/75
[2020-05-03] MEDS ORDERED: CARVEDILOL 6.25 MG TABLET PO ONE (12:00)
[2020-05-03] MEDS ORDERED: MAGNESIUM SULFATE 2 GM/WATER 50 ML IV PRN (12:00)
[2020-05-03] MEDS ORDERED: MAGNESIUM SULFATE 4 GM/WATER 100 ML IV PRN (12:00)
[2020-05-03] MEDS ORDERED: MAGNESIUM OXIDE 400 MG TABLET PO PRN (12:00)
[2020-05-03 12:37] LABS: BAND NEUTROPHILS % (MANUAL) 0 % (0-5); HEMATOCRIT 35.1 % (36-46); HEMOGLOBIN 11.1 g/dL (12.0-16.0); MEAN CORPUSCULAR HEMOGLOBIN 26.6 pg (26.0-34.0); MEAN CORPUSCULAR HGB CONC 31.8 G/dL (31.0-37.0); MEAN CORPUSCULAR VOLUME 84 fL (80-100); PLATELET COUNT (AUTO) 188 K/uL (150-450); RED BLOOD CELL COUNT(AUTO) 4.19 MIL/uL (4.00-5.20); RED CELL DISTRIBUTION WIDTH 17.9 % (11.5-14.5)
[2020-05-03 12:46] LABS: CALCIUM, TOTAL 8.5 mg/dL (8.8-10.5); CREATININE 1.39 mg/dL (0.60-1.30); POTASSIUM 4.4 mmol/L (3.5-5.1)
[2020-05-03 12:51] LABS: ALBUMIN 2.8 g/dL (3.4-5.0); BILIRUBIN,TOTAL 1.9 mg/dL (0.1-1.0); MAGNESIUM 1.8 mg/dL (1.80-2.40); TOTAL PROTEIN, SERUM 6.7 g/dL (6.4-8.2)
[2020-05-03 13:24] LABS: LYMPHOCYTES % (MANUAL) 14 % (22-44); MONOCYTES % (MANUAL) 8 % (2-9); SEGMENTED NEUTROPHILS % 78 % (40-70)
[2020-05-03 15:27] VITALS: BP 131/75
[2020-05-03 20:50] VITALS: BP 144/93
[2020-05-04 00:15] VITALS: BP 121/87
[2020-05-04 04:38] VITALS: BP 126/77
[2020-05-04] MEDS: ALBUTEROL SULFATE HFA 90 MCG/PUFF 8 GM INHALER IH PRN ×2 (05:20→20:33)
[2020-05-04] MEDS: INSULIN LISPRO 100 UNITS/ML SQ PRN ×4 (05:38→20:37)
[2020-05-04 07:20] LABS: BASOPHILS % (AUTO) 0.7 % (0.0-2.0); EOSINOPHILS % (AUTO) 0.1 % (1.0-6.0); HEMATOCRIT 35.3 % (36-46); HEMOGLOBIN 11.2 g/dL (12.0-16.0); LYMPHOCYTES # (AUTO) 1.5 K/uL (1.0-4.8); LYMPHOCYTES % (AUTO) 26.3 % (22.0-44.0); MEAN CORPUSCULAR HEMOGLOBIN 26.6 pg (26.0-34.0); MEAN CORPUSCULAR HGB CONC 31.7 G/dL (31.0-37.0); MEAN CORPUSCULAR VOLUME 84 fL (80-100); MONOCYTES # (AUTO) 0.8 K/uL (0.1-1.0); MONOCYTES % (AUTO) 13.5 % (2.0-9.0); NEUTROPHILS # (AUTO) 3.3 K/uL (1.8-7.7); NEUTROPHILS % (AUTO) 59.4 % (40.0-70.0); PLATELET COUNT (AUTO) 197 K/uL (150-450); RED BLOOD CELL COUNT(AUTO) 4.21 MIL/uL (4.00-5.20); RED CELL DISTRIBUTION WIDTH 17.9 % (11.5-14.5)
[2020-05-04 07:42] VITALS: BP 135/94
[2020-05-04 07:57] LABS: D-DIMER 0.76 mg/L FEU (0.00-0.50)
[2020-05-04] MEDS: FUROSEMIDE 40 MG TABLET PO SCH (08:31)
[2020-05-04] MEDS: DEXAMETHASONE SOD PHOS 4 MG/ML VIAL IVP SCH (08:31)
[2020-05-04] MEDS: FAMOTIDINE 20 MG TABLET PO SCH (08:31)
[2020-05-04] MEDS: ALPRAZolam 0.5 MG TABLET PO PRN (08:32)
[2020-05-04] MEDS: DOCUSATE SODIUM 100 MG CAPSULE PO SCH ×2 (08:32→20:32)
[2020-05-04] MEDS: ASPIRIN 81 MG CHEWABLE TABLET PO SCH (08:32)
[2020-05-04] MEDS: CARVEDILOL 6.25 MG TABLET PO SCH ×2 (08:32→20:32)
[2020-05-04 09:31] LABS: ALBUMIN 2.6 g/dL (3.4-5.0); BILIRUBIN,TOTAL 1.4 mg/dL (0.1-1.0); C-REACTIVE PROTEIN QUANT 1.09 mg/dL (0.00-0.30); CALCIUM, TOTAL 8.9 mg/dL (8.8-10.5); CREATININE 1.42 mg/dL (0.60-1.30); MAGNESIUM 2.1 mg/dL (1.80-2.40); POTASSIUM 4.8 mmol/L (3.5-5.1)
[2020-05-04] MEDS: LOSARTAN POTASSIUM 25 MG TABLET PO SCH ×2 (11:04→20:32)
[2020-05-04 12:41] LABS: GLUCOMETER DEV NAME(LOC) 5S.1; GLUCOSE,POINT OF CARE 162 MG/DL (70-110)
[2020-05-04 12:41] LABS: GLUCOMETER DEV NAME(LOC) 5S.1; GLUCOSE,POINT OF CARE 205 MG/DL (70-110)
[2020-05-04 12:41] LABS: GLUCOMETER DEV NAME(LOC) 5S.1; GLUCOSE,POINT OF CARE 223 MG/DL (70-110)
[2020-05-04 12:41] LABS: GLUCOMETER DEV NAME(LOC) 5S.1; GLUCOSE,POINT OF CARE 215 MG/DL (70-110)
[2020-05-04 12:41] LABS: GLUCOMETER DEV NAME(LOC) 5S.1; GLUCOSE,POINT OF CARE 174 MG/DL (70-110)
[2020-05-04 12:43] VITALS: BP 145/41
[2020-05-04 16:43] VITALS: BP 101/45
[2020-05-04 17:01] LABS: GLUCOMETER DEV NAME(LOC) 5S.1; GLUCOSE,POINT OF CARE 294 MG/DL (70-110)
[2020-05-04 17:33] LABS: GLUCOMETER DEV NAME(LOC) 5S.2A; GLUCOSE,POINT OF CARE 237 MG/DL (70-110)
[2020-05-04 19:50] VITALS: BP 136/93
[2020-05-04] MEDS: ACETAMINOPHEN 325 MG TABLET PO PRN (20:32)
[2020-05-05 01:36] VITALS: BP 149/92
[2020-05-05 03:41] LABS: GLUCOMETER DEV NAME(LOC) 5S.1; GLUCOSE,POINT OF CARE 246 MG/DL (70-110)
[2020-05-05] MEDS: ALPRAZolam 1 MG TABLET PO PRN ×2 (04:00→21:34)
[2020-05-05 04:02] VITALS: BP 128/81
[2020-05-05] MEDS: INSULIN LISPRO 100 UNITS/ML SQ PRN ×4 (06:02→20:27)
[2020-05-05 07:32] VITALS: BP 132/79
[2020-05-05 07:47] LABS: BASOPHILS % (AUTO) 0.7 % (0.0-2.0); EOSINOPHILS % (AUTO) 0 % (1.0-6.0); HEMATOCRIT 36.3 % (36-46); HEMOGLOBIN 11.3 g/dL (12.0-16.0); LYMPHOCYTES # (AUTO) 1.1 K/uL (1.0-4.8); LYMPHOCYTES % (AUTO) 25.9 % (22.0-44.0); MEAN CORPUSCULAR HEMOGLOBIN 26.4 pg (26.0-34.0); MEAN CORPUSCULAR HGB CONC 31.1 G/dL (31.0-37.0); MEAN CORPUSCULAR VOLUME 85 fL (80-100); MONOCYTES # (AUTO) 0.6 K/uL (0.1-1.0); MONOCYTES % (AUTO) 14.3 % (2.0-9.0); NEUTROPHILS # (AUTO) 2.4 K/uL (1.8-7.7); NEUTROPHILS % (AUTO) 59.1 % (40.0-70.0); PLATELET COUNT (AUTO) 199 K/uL (150-450); RED BLOOD CELL COUNT(AUTO) 4.28 MIL/uL (4.00-5.20)
[2020-05-05 07:55] LABS: D-DIMER 0.85 mg/L FEU (0.00-0.50)
[2020-05-05] MEDS: DEXAMETHASONE SOD PHOS 4 MG/ML VIAL IVP SCH (08:44)
[2020-05-05] MEDS: LOSARTAN POTASSIUM 25 MG TABLET PO SCH ×2 (08:45→20:25)
[2020-05-05] MEDS: CARVEDILOL 6.25 MG TABLET PO SCH ×2 (08:45→20:25)
[2020-05-05] MEDS: ASPIRIN 81 MG CHEWABLE TABLET PO SCH (08:45)
[2020-05-05] MEDS: FAMOTIDINE 20 MG TABLET PO SCH (08:45)
[2020-05-05] MEDS: DOCUSATE SODIUM 100 MG CAPSULE PO SCH ×2 (08:45→20:25)
[2020-05-05] MEDS: FUROSEMIDE 40 MG TABLET PO SCH (08:45)
[2020-05-05 09:01] LABS: ALBUMIN 2.5 g/dL (3.4-5.0); BILIRUBIN,TOTAL 1.1 mg/dL (0.1-1.0); C-REACTIVE PROTEIN QUANT 0.55 mg/dL (0.00-0.30); CALCIUM, TOTAL 9.1 mg/dL (8.8-10.5); CREATININE 1.4 mg/dL (0.60-1.30); POTASSIUM 4.9 mmol/L (3.5-5.1); TOTAL PROTEIN, SERUM 6.8 g/dL (6.4-8.2)
[2020-05-05 09:09] LABS: GLUCOMETER DEV NAME(LOC) 5S.2A; GLUCOSE,POINT OF CARE 203 MG/DL (70-110)
[2020-05-05 11:18] VITALS: BP 137/75
[2020-05-05] MEDS: CITALOPRAM HYDROBROMIDE 10 MG TABLET PO SCH (12:00)
[2020-05-05 12:17] LABS: GLUCOMETER DEV NAME(LOC) 5S.1; GLUCOSE,POINT OF CARE 205 MG/DL (70-110)
[2020-05-05 15:19] VITALS: BP 114/61
[2020-05-05] MEDS: BusPIRone HCL 5 MG TABLET PO SCH ×2 (15:37→20:25)
[2020-05-05] MEDS: BISACODYL 5 MG EC TABLET PO PRN (17:06)
[2020-05-05 20:20] VITALS: BP 147/103
[2020-05-05 22:00] LABS: GLUCOMETER DEV NAME(LOC) 5S.2A; GLUCOSE,POINT OF CARE 226 MG/DL (70-110)
[2020-05-05 22:00] LABS: GLUCOMETER DEV NAME(LOC) 5S.2A; GLUCOSE,POINT OF CARE 235 MG/DL (70-110)
[2020-05-06 00:12] VITALS: BP 140/101
[2020-05-06 04:21] VITALS: BP 143/95
[2020-05-06] MEDS: INSULIN LISPRO 100 UNITS/ML SQ PRN ×3 (06:10→20:24)
[2020-05-06 06:52] LABS: GLUCOMETER DEV NAME(LOC) 5S.1; GLUCOSE,POINT OF CARE 180 MG/DL (70-110)
[2020-05-06 07:13] LABS: BASOPHILS % (AUTO) 0.9 % (0.0-2.0); EOSINOPHILS % (AUTO) 0.1 % (1.0-6.0); HEMATOCRIT 43.8 % (36-46); HEMOGLOBIN 13.8 g/dL (12.0-16.0); LYMPHOCYTES # (AUTO) 1.2 K/uL (1.0-4.8); LYMPHOCYTES % (AUTO) 21.6 % (22.0-44.0); MEAN CORPUSCULAR HEMOGLOBIN 26.6 pg (26.0-34.0); MEAN CORPUSCULAR HGB CONC 31.4 G/dL (31.0-37.0); MEAN CORPUSCULAR VOLUME 85 fL (80-100); MONOCYTES # (AUTO) 0.5 K/uL (0.1-1.0); MONOCYTES % (AUTO) 9.8 % (2.0-9.0); NEUTROPHILS # (AUTO) 3.8 K/uL (1.8-7.7); NEUTROPHILS % (AUTO) 67.6 % (40.0-70.0); RED BLOOD CELL COUNT(AUTO) 5.17 MIL/uL (4.00-5.20); RED CELL DISTRIBUTION WIDTH 18.4 % (11.5-14.5)
[2020-05-06 07:25] VITALS: BP 140/76
[2020-05-06 09:00] LABS: PLATELET COUNT (AUTO) 200 K/uL (150-450)
[2020-05-06] MEDS: FAMOTIDINE 20 MG TABLET PO SCH (09:13)
[2020-05-06] MEDS: FUROSEMIDE 40 MG TABLET PO SCH (09:13)
[2020-05-06] MEDS: DEXAMETHASONE SOD PHOS 4 MG/ML VIAL IVP SCH (09:13)
[2020-05-06] MEDS: LOSARTAN POTASSIUM 25 MG TABLET PO SCH ×2 (09:13→20:33)
[2020-05-06] MEDS: ASPIRIN 81 MG CHEWABLE TABLET PO SCH (09:13)
[2020-05-06] MEDS: DOCUSATE SODIUM 100 MG CAPSULE PO SCH ×2 (09:13→20:33)
[2020-05-06] MEDS: CARVEDILOL 6.25 MG TABLET PO SCH ×2 (09:13→20:33)
[2020-05-06] MEDS: BusPIRone HCL 5 MG TABLET PO SCH ×3 (09:13→20:33)
[2020-05-06] MEDS: CITALOPRAM HYDROBROMIDE 10 MG TABLET PO SCH (09:13)
[2020-05-06] MEDS: ALPRAZolam 1 MG TABLET PO PRN ×2 (09:14→19:58)
[2020-05-06] MEDS: HEPARIN SODIUM 25000 UNITS/D5W 250 ML IV PRN (11:21)
[2020-05-06] MEDS: HEPARIN SODIUM,PORCINE 5,000 UNITS/ML VIAL IVP PRN (11:22)
[2020-05-06 11:45] VITALS: BP 156/84
[2020-05-06 12:21] LABS: ALBUMIN 2.6 g/dL (3.4-5.0); BILIRUBIN,TOTAL 1.3 mg/dL (0.1-1.0); C-REACTIVE PROTEIN QUANT 0.35 mg/dL (0.00-0.30); CALCIUM, TOTAL 9.3 mg/dL (8.8-10.5); CREATININE 1.48 mg/dL (0.60-1.30); POTASSIUM 5.1 mmol/L (3.5-5.1); TOTAL PROTEIN, SERUM 7.4 g/dL (6.4-8.2)
[2020-05-06 13:09] LABS: GLUCOMETER DEV NAME(LOC) 5S.1; GLUCOSE,POINT OF CARE 194 MG/DL (70-110)
[2020-05-06 15:10] VITALS: BP 149/86
[2020-05-06] MEDS ORDERED: REMDESIVIR **INVESTIGATIONAL** 200 MG in SODIUM CHLORIDE 0.9% 210 ML IV ONE (15:15)
[2020-05-06 22:30] VITALS: BP 144/75
[2020-05-06] MEDS ORDERED: SODIUM CHLORIDE 0.9% 250 ML IV ONE (23:33)
[2020-05-07 03:00] LABS: GLUCOMETER DEV NAME(LOC) 5S.1; GLUCOSE,POINT OF CARE 284 MG/DL (70-110)
[2020-05-07 04:45] VITALS: BP 159/93
[2020-05-07] MEDS: INSULIN LISPRO 100 UNITS/ML SQ PRN ×4 (06:28→20:39)
[2020-05-07 06:53] LABS: D-DIMER 0.99 mg/L FEU (0.00-0.50)
[2020-05-07] MEDS: CITALOPRAM HYDROBROMIDE 10 MG TABLET PO SCH (08:12)
[2020-05-07] MEDS: ALPRAZolam 1 MG TABLET PO PRN (08:12)
[2020-05-07] MEDS: LOSARTAN POTASSIUM 25 MG TABLET PO SCH ×2 (08:12→20:30)
[2020-05-07] MEDS: FAMOTIDINE 20 MG TABLET PO SCH (08:12)
[2020-05-07] MEDS: FUROSEMIDE 40 MG TABLET PO SCH (08:12)
[2020-05-07] MEDS: BusPIRone HCL 5 MG TABLET PO SCH ×3 (08:12→20:30)
[2020-05-07] MEDS: DOCUSATE SODIUM 100 MG CAPSULE PO SCH ×2 (08:12→20:30)
[2020-05-07] MEDS: ASPIRIN 81 MG CHEWABLE TABLET PO SCH (08:13)
[2020-05-07] MEDS: DEXAMETHASONE SOD PHOS 4 MG/ML VIAL IVP SCH (08:13)
[2020-05-07] MEDS: CARVEDILOL 6.25 MG TABLET PO SCH ×2 (08:13→20:30)
[2020-05-07 08:34] VITALS: BP 156/84
[2020-05-07 08:46] LABS: ALBUMIN 2.6 g/dL (3.4-5.0); BILIRUBIN,TOTAL 1.3 mg/dL (0.1-1.0); C-REACTIVE PROTEIN QUANT 0.66 mg/dL (0.00-0.30); CALCIUM, TOTAL 9.3 mg/dL (8.8-10.5); CREATININE 1.36 mg/dL (0.60-1.30); POTASSIUM 4.2 mmol/L (3.5-5.1); TOTAL PROTEIN, SERUM 7.3 g/dL (6.4-8.2)
[2020-05-07] MEDS: HEPARIN SODIUM,PORCINE 5,000 UNITS/ML VIAL IVP PRN (15:11)
[2020-05-07 15:58] VITALS: BP 155/99
[2020-05-07 15:59] LABS: GLUCOMETER DEV NAME(LOC) 5S.2A; GLUCOSE,POINT OF CARE 178 MG/DL (70-110)
[2020-05-07 15:59] LABS: GLUCOMETER DEV NAME(LOC) 5S.2A; GLUCOSE,POINT OF CARE 237 MG/DL (70-110)
[2020-05-07 20:31] VITALS: BP 155/94
[2020-05-07 21:51] LABS: GLUCOMETER DEV NAME(LOC) 5S.2A; GLUCOSE,POINT OF CARE 297 MG/DL (70-110)
[2020-05-07] MEDS: REMDESIVIR **INVESTIGATIONAL** 100 MG in SODIUM CHLORIDE 0.9% 230 ML IV SCH (22:42)
[2020-05-07 23:48] VITALS: BP 133/69
[2020-05-08] MEDS: HEPARIN SODIUM 25000 UNITS/D5W 250 ML IV PRN (03:59)
[2020-05-08 04:26] VITALS: BP 149/74
[2020-05-08] MEDS: INSULIN LISPRO 100 UNITS/ML SQ PRN ×3 (06:12→21:40)
[2020-05-08 06:43] LABS: GLUCOMETER DEV NAME(LOC) 5S.1; GLUCOSE,POINT OF CARE 293 MG/DL (70-110)
[2020-05-08 06:44] LABS: GLUCOMETER DEV NAME(LOC) 5S.1; GLUCOSE,POINT OF CARE 192 MG/DL (70-110)
[2020-05-08 07:21] VITALS: BP 128/72
[2020-05-08] MEDS: BusPIRone HCL 5 MG TABLET PO SCH ×3 (09:24→21:31)
[2020-05-08] MEDS: FAMOTIDINE 20 MG TABLET PO SCH (09:24)
[2020-05-08] MEDS: CARVEDILOL 6.25 MG TABLET PO SCH ×2 (09:25→21:31)
[2020-05-08] MEDS: ASPIRIN 81 MG CHEWABLE TABLET PO SCH (09:25)
[2020-05-08] MEDS: DOCUSATE SODIUM 100 MG CAPSULE PO SCH ×2 (09:25→21:30)
[2020-05-08] MEDS: LOSARTAN POTASSIUM 25 MG TABLET PO SCH (09:25)
[2020-05-08] MEDS: DEXAMETHASONE SOD PHOS 4 MG/ML VIAL IVP SCH (09:26)
[2020-05-08] MEDS: FUROSEMIDE 40 MG TABLET PO SCH (09:27)
[2020-05-08] MEDS: CITALOPRAM HYDROBROMIDE 10 MG TABLET PO SCH (09:30)
[2020-05-08 10:30] LABS: BASOPHILS % (AUTO) 0.8 % (0.0-2.0); EOSINOPHILS % (AUTO) 0.4 % (1.0-6.0); HEMOGLOBIN 14.7 g/dL (12.0-16.0); LYMPHOCYTES # (AUTO) 1.1 K/uL (1.0-4.8); LYMPHOCYTES % (AUTO) 16.7 % (22.0-44.0); MEAN CORPUSCULAR HEMOGLOBIN 26.4 pg (26.0-34.0); MEAN CORPUSCULAR HGB CONC 31.3 G/dL (31.0-37.0); MEAN CORPUSCULAR VOLUME 84 fL (80-100); MONOCYTES # (AUTO) 0.7 K/uL (0.1-1.0); MONOCYTES % (AUTO) 10.6 % (2.0-9.0); NEUTROPHILS # (AUTO) 4.6 K/uL (1.8-7.7); NEUTROPHILS % (AUTO) 71.5 % (40.0-70.0); PLATELET COUNT (AUTO) 281 K/uL (150-450); RED BLOOD CELL COUNT(AUTO) 5.58 MIL/uL (4.00-5.20); RED CELL DISTRIBUTION WIDTH 18.3 % (11.5-14.5)
[2020-05-08 10:59] LABS: ALBUMIN 2.8 g/dL (3.4-5.0); BILIRUBIN,TOTAL 1.3 mg/dL (0.1-1.0); C-REACTIVE PROTEIN QUANT 0.53 mg/dL (0.00-0.30); CALCIUM, TOTAL 9.7 mg/dL (8.8-10.5); CREATININE 1.62 mg/dL (0.60-1.30); MAGNESIUM 2.1 mg/dL (1.80-2.40); TOTAL PROTEIN, SERUM 7.8 g/dL (6.4-8.2)
[2020-05-08 11:21] VITALS: BP 129/75
[2020-05-08] MEDS: HEPARIN SODIUM,PORCINE 5,000 UNITS/ML VIAL IVP PRN (11:23)
[2020-05-08] MEDS ORDERED: LORazepam 2 MG/ML VIAL IVP ONE (15:45)
[2020-05-08 16:50] VITALS: BP 142/79
[2020-05-08 16:57] LABS: GLUCOMETER DEV NAME(LOC) 5N.3; GLUCOSE,POINT OF CARE 268 MG/DL (70-110)
[2020-05-08 20:28] VITALS: BP 134/76
[2020-05-08] MEDS: REMDESIVIR **INVESTIGATIONAL** 100 MG in SODIUM CHLORIDE 0.9% 230 ML IV SCH (22:56)
[2020-05-09 03:58] VITALS: BP 143/98
[2020-05-09 07:13] LABS: GLUCOMETER DEV NAME(LOC) 5N.3; GLUCOSE,POINT OF CARE 275 MG/DL (70-110)
[2020-05-09 09:30] VITALS: BP 132/86
[2020-05-09] MEDS: ASPIRIN 81 MG CHEWABLE TABLET PO SCH (09:33)
[2020-05-09] MEDS: FAMOTIDINE 20 MG TABLET PO SCH (09:33)
[2020-05-09] MEDS: CITALOPRAM HYDROBROMIDE 10 MG TABLET PO SCH (09:34)
[2020-05-09] MEDS: BusPIRone HCL 5 MG TABLET PO SCH ×3 (09:34→21:45)
[2020-05-09] MEDS: CARVEDILOL 6.25 MG TABLET PO SCH ×2 (09:34→21:46)
[2020-05-09] MEDS: FUROSEMIDE 40 MG TABLET PO SCH (09:34)
[2020-05-09] MEDS: DOCUSATE SODIUM 100 MG CAPSULE PO SCH ×2 (09:34→21:46)
[2020-05-09 10:25] VITALS: BP 128/61
[2020-05-09] MEDS: DEXAMETHASONE SOD PHOS 4 MG/ML VIAL IVP SCH (11:32)
[2020-05-09 13:04] LABS: BASOPHILS % (AUTO) 0.7 % (0.0-2.0); EOSINOPHILS % (AUTO) 0.8 % (1.0-6.0); HEMATOCRIT 46.1 % (36-46); HEMOGLOBIN 14.3 g/dL (12.0-16.0); LYMPHOCYTES # (AUTO) 1.1 K/uL (1.0-4.8); LYMPHOCYTES % (AUTO) 15.2 % (22.0-44.0); MEAN CORPUSCULAR HEMOGLOBIN 25.8 pg (26.0-34.0); MEAN CORPUSCULAR VOLUME 83 fL (80-100); MONOCYTES # (AUTO) 0.8 K/uL (0.1-1.0); MONOCYTES % (AUTO) 11.2 % (2.0-9.0); NEUTROPHILS # (AUTO) 5.1 K/uL (1.8-7.7); NEUTROPHILS % (AUTO) 72.1 % (40.0-70.0); PLATELET COUNT (AUTO) 280 K/uL (150-450); RED BLOOD CELL COUNT(AUTO) 5.53 MIL/uL (4.00-5.20); RED CELL DISTRIBUTION WIDTH 18.4 % (11.5-14.5)
[2020-05-09] MEDS: INSULIN LISPRO 100 UNITS/ML SQ PRN (13:06)
[2020-05-09 13:17] LABS: D-DIMER 1.76 mg/L FEU (0.00-0.50)
[2020-05-09 13:37] LABS: ALBUMIN 2.7 g/dL (3.4-5.0); BILIRUBIN,TOTAL 1.3 mg/dL (0.1-1.0); C-REACTIVE PROTEIN QUANT 0.28 mg/dL (0.00-0.30); CALCIUM, TOTAL 9.6 mg/dL (8.8-10.5); CREATININE 1.62 mg/dL (0.60-1.30); MAGNESIUM 2.1 mg/dL (1.80-2.40); PHOSPHORUS 4.1 mg/dL (2.5-4.9); POTASSIUM 4.1 mmol/L (3.5-5.1); TOTAL PROTEIN, SERUM 7.5 g/dL (6.4-8.2)
[2020-05-09 15:00] VITALS: BP 122/95
[2020-05-09 18:20] LABS: APPEARANCE,URINE CLOUDY (CLEAR); BILIRUBIN,URINE NEGATIVE (NEGATIVE); GLUCOSE, URINE (UA) NEGATIVE (NEGATIVE); KETONES,URINE NEGATIVE (NEGATIVE); LEUKOCYTE ESTERASE ,URINE TRACE (NEGATIVE); NITRATE,URINE NEGATIVE (NEGATIVE); OCCULT BLOOD,URINE MODERATE (NEGATIVE); PROTEIN,URINE NEGATIVE (NEGATIVE)
[2020-05-09 18:23] LABS: CREATININE,URINE RANDOM 69.5 mg/dL (30.0-125.0); SODIUM,URINE RANDOM 58 mmol/l (20-110); UREA NITROGEN,URINE RANDOM 958 mg/dL (350-1000)
[2020-05-09] MEDS: HEPARIN SODIUM 25000 UNITS/D5W 250 ML IV PRN (18:38)
[2020-05-09 18:57] LABS: BACTERIA,URINE Many /HPF (None Seen)
[2020-05-09 19:00] LABS: RBC,URINE 0-2 /HPF (0-2)
[2020-05-09 19:01] LABS: SQUAMOUS EPITHELIAL CELL,UR Few /LPF (None Seen)
[2020-05-09 21:00] VITALS: BP 135/84
[2020-05-09] MEDS ORDERED: SODIUM CHLORIDE 0.9% 100 ML ONE (22:55)
[2020-05-09] MEDS: REMDESIVIR **INVESTIGATIONAL** 100 MG in SODIUM CHLORIDE 0.9% 230 ML IV SCH (22:57)
[2020-05-09] MEDS: ALPRAZolam 1 MG TABLET PO PRN (22:58)
[2020-05-10 04:03] VITALS: BP 113/70
[2020-05-10] MEDS: INSULIN LISPRO 100 UNITS/ML SQ PRN ×4 (06:05→22:32)
[2020-05-10 06:48] LABS: GLUCOMETER DEV NAME(LOC) 5N.3; GLUCOSE,POINT OF CARE 228 MG/DL (70-110)
[2020-05-10 06:49] LABS: GLUCOMETER DEV NAME(LOC) 5N.3; GLUCOSE,POINT OF CARE 264 MG/DL (70-110)
[2020-05-10] MEDS: FUROSEMIDE 40 MG TABLET PO SCH (09:00)
[2020-05-10 09:22] LABS: ALBUMIN 2.7 g/dL (3.4-5.0); BILIRUBIN,TOTAL 1.2 mg/dL (0.1-1.0); CALCIUM, TOTAL 9.9 mg/dL (8.8-10.5); CREATININE 1.69 mg/dL (0.60-1.30); MAGNESIUM 2.3 mg/dL (1.80-2.40); PHOSPHORUS 4.2 mg/dL (2.5-4.9); POTASSIUM 3.5 mmol/L (3.5-5.1); TOTAL PROTEIN, SERUM 7.5 g/dL (6.4-8.2)
[2020-05-10] MEDS: ASPIRIN 81 MG CHEWABLE TABLET PO SCH (09:53)
[2020-05-10] MEDS: DOCUSATE SODIUM 100 MG CAPSULE PO SCH ×2 (09:53→22:22)
[2020-05-10] MEDS: DEXAMETHASONE SOD PHOS 4 MG/ML VIAL IVP SCH (09:53)
[2020-05-10] MEDS: CARVEDILOL 6.25 MG TABLET PO SCH ×2 (09:54→22:22)
[2020-05-10] MEDS: FAMOTIDINE 20 MG TABLET PO SCH (09:54)
[2020-05-10] MEDS: BusPIRone HCL 5 MG TABLET PO SCH ×3 (10:09→22:22)
[2020-05-10] MEDS: CITALOPRAM HYDROBROMIDE 10 MG TABLET PO SCH (10:12)
[2020-05-10] MEDS: ALPRAZolam 1 MG TABLET PO PRN ×3 (10:15→22:31)
[2020-05-10 11:29] VITALS: BP 128/97
[2020-05-10 12:53] LABS: C-REACTIVE PROTEIN QUANT 0.23 mg/dL (0.00-0.30)
[2020-05-10 13:11] LABS: GLUCOMETER DEV NAME(LOC) 5N.1; GLUCOSE,POINT OF CARE 254 MG/DL (70-110)
[2020-05-10] MEDS: WATER FOR INJECTION,STERILE 500 ML in DEXTROSE 5%-WATER 500 ML IV SCH (13:43)
[2020-05-10 16:23] VITALS: BP 135/89
[2020-05-10 20:27] VITALS: BP 129/88
[2020-05-10] MEDS: REMDESIVIR **INVESTIGATIONAL** 100 MG in SODIUM CHLORIDE 0.9% 230 ML IV SCH (22:23)
[2020-05-11] VITALS (7 sets, daily range): BP systolic 119–146; BP diastolic 56–92
[2020-05-11 01:06] LABS: GLUCOMETER DEV NAME(LOC) 5N.1; GLUCOSE,POINT OF CARE 372 MG/DL (70-110)
[2020-05-11 01:07] LABS: GLUCOMETER DEV NAME(LOC) 5N.1; GLUCOSE,POINT OF CARE 342 MG/DL (70-110)
[2020-05-11] MEDS: WATER FOR INJECTION,STERILE 500 ML in DEXTROSE 5%-WATER 500 ML IV SCH ×2 (04:22→16:53)
[2020-05-11] MEDS: INSULIN LISPRO 100 UNITS/ML SQ PRN ×3 (06:15→17:49)
[2020-05-11] MEDS: CITALOPRAM HYDROBROMIDE 10 MG TABLET PO SCH (07:43)
[2020-05-11] MEDS: CARVEDILOL 6.25 MG TABLET PO SCH ×2 (07:43→22:02)
[2020-05-11] MEDS: BusPIRone HCL 5 MG TABLET PO SCH ×3 (07:43→22:02)
[2020-05-11] MEDS: DOCUSATE SODIUM 100 MG CAPSULE PO SCH ×2 (07:43→22:02)
[2020-05-11] MEDS: ASPIRIN 81 MG CHEWABLE TABLET PO SCH (07:43)
[2020-05-11] MEDS: FAMOTIDINE 20 MG TABLET PO SCH (07:43)
[2020-05-11] MEDS: DEXAMETHASONE SOD PHOS 4 MG/ML VIAL IVP SCH (07:44)
[2020-05-11] MEDS: ALPRAZolam 1 MG TABLET PO PRN ×3 (07:46→22:02)
[2020-05-11 08:32] LABS: GLUCOMETER DEV NAME(LOC) 5N.1; GLUCOSE,POINT OF CARE 190 MG/DL (70-110)
[2020-05-11 09:09] LABS: BASOPHILS % (AUTO) 0.4 % (0.0-2.0); EOSINOPHILS % (AUTO) 0.5 % (1.0-6.0); HEMATOCRIT 48.3 % (36-46); HEMOGLOBIN 14.8 g/dL (12.0-16.0); LYMPHOCYTES # (AUTO) 0.9 K/uL (1.0-4.8); LYMPHOCYTES % (AUTO) 12.6 % (22.0-44.0); MEAN CORPUSCULAR HEMOGLOBIN 26.1 pg (26.0-34.0); MEAN CORPUSCULAR HGB CONC 30.6 G/dL (31.0-37.0); MEAN CORPUSCULAR VOLUME 85 fL (80-100); MONOCYTES # (AUTO) 0.7 K/uL (0.1-1.0); MONOCYTES % (AUTO) 9.3 % (2.0-9.0); NEUTROPHILS # (AUTO) 5.7 K/uL (1.8-7.7); NEUTROPHILS % (AUTO) 77.2 % (40.0-70.0); PLATELET COUNT (AUTO) 254 K/uL (150-450); RED BLOOD CELL COUNT(AUTO) 5.67 MIL/uL (4.00-5.20)
[2020-05-11 09:33] LABS: D-DIMER 1.32 mg/L FEU (0.00-0.50)
[2020-05-11 09:34] LABS: ALBUMIN 2.9 g/dL (3.4-5.0); BILIRUBIN,TOTAL 1.3 mg/dL (0.1-1.0); C-REACTIVE PROTEIN QUANT 0.3 mg/dL (0.00-0.30); CALCIUM, TOTAL 10.1 mg/dL (8.8-10.5); CREATININE 1.64 mg/dL (0.60-1.30); POTASSIUM 4.6 mmol/L (3.5-5.1); TOTAL PROTEIN, SERUM 7.8 g/dL (6.4-8.2)
[2020-05-11 10:24] LABS: ERYTHROCYTE SEDIMENTATION RATE 27 MM/HR (0-20)
[2020-05-11 21:28] LABS: GLUCOMETER DEV NAME(LOC) 5S.2A; GLUCOSE,POINT OF CARE 345 MG/DL (70-110)
[2020-05-12 04:24] VITALS: BP 157/71
[2020-05-12] MEDS: WATER FOR INJECTION,STERILE 500 ML in DEXTROSE 5%-WATER 500 ML IV SCH ×2 (06:17→20:11)
[2020-05-12] MEDS: INSULIN LISPRO 100 UNITS/ML SQ PRN ×4 (06:23→20:13)
[2020-05-12 07:00] LABS: BASOPHILS % (AUTO) 0.7 % (0.0-2.0); EOSINOPHILS % (AUTO) 0.4 % (1.0-6.0); HEMATOCRIT 42.7 % (36-46); HEMOGLOBIN 13.4 g/dL (12.0-16.0); LYMPHOCYTES % (AUTO) 13.3 % (22.0-44.0); MEAN CORPUSCULAR HEMOGLOBIN 26.1 pg (26.0-34.0); MEAN CORPUSCULAR HGB CONC 31.4 G/dL (31.0-37.0); MEAN CORPUSCULAR VOLUME 83 fL (80-100); MONOCYTES # (AUTO) 0.6 K/uL (0.1-1.0); MONOCYTES % (AUTO) 7.8 % (2.0-9.0); NEUTROPHILS # (AUTO) 5.9 K/uL (1.8-7.7); NEUTROPHILS % (AUTO) 77.8 % (40.0-70.0); PLATELET COUNT (AUTO) 229 K/uL (150-450); RED BLOOD CELL COUNT(AUTO) 5.13 MIL/uL (4.00-5.20); RED CELL DISTRIBUTION WIDTH 18.5 % (11.5-14.5)
[2020-05-12 07:32] LABS: ALBUMIN 2.5 g/dL (3.4-5.0); BILIRUBIN,TOTAL 1.1 mg/dL (0.1-1.0); CALCIUM, TOTAL 9.4 mg/dL (8.8-10.5); CREATININE 1.44 mg/dL (0.60-1.30); MAGNESIUM 2.1 mg/dL (1.80-2.40); PHOSPHORUS 3.5 mg/dL (2.5-4.9); POTASSIUM 3.8 mmol/L (3.5-5.1); TOTAL PROTEIN, SERUM 6.9 g/dL (6.4-8.2)
[2020-05-12] MEDS: CARVEDILOL 6.25 MG TABLET PO SCH ×2 (08:35→20:07)
[2020-05-12] MEDS: DOCUSATE SODIUM 100 MG CAPSULE PO SCH ×2 (08:35→20:07)
[2020-05-12] MEDS: BusPIRone HCL 5 MG TABLET PO SCH ×3 (08:35→20:07)
[2020-05-12] MEDS: ASPIRIN 81 MG CHEWABLE TABLET PO SCH (08:35)
[2020-05-12] MEDS: FAMOTIDINE 20 MG TABLET PO SCH (08:35)
[2020-05-12] MEDS: CITALOPRAM HYDROBROMIDE 10 MG TABLET PO SCH (08:38)
[2020-05-12 08:58] VITALS: BP 173/64
[2020-05-12 09:03] LABS: PLATELET MORPHOLOGY COMMENT GIANT PLTS PRESENT
[2020-05-12 12:00] VITALS: BP 151/71
[2020-05-12 16:13] VITALS: BP 124/74
[2020-05-12] MEDS: BISACODYL 5 MG EC TABLET PO PRN (20:07)
[2020-05-12 20:21] VITALS: BP 125/76
[2020-05-12 21:45] LABS: GLUCOMETER DEV NAME(LOC) 5N.1; GLUCOSE,POINT OF CARE 315 MG/DL (70-110)
[2020-05-12 21:46] LABS: GLUCOMETER DEV NAME(LOC) 5N.1; GLUCOSE,POINT OF CARE 192 MG/DL (70-110)
[2020-05-12 21:46] LABS: GLUCOMETER DEV NAME(LOC) 5N.1; GLUCOSE,POINT OF CARE 221 MG/DL (70-110)
[2020-05-12 21:46] LABS: GLUCOMETER DEV NAME(LOC) 5N.1; GLUCOSE,POINT OF CARE 231 MG/DL (70-110)
[2020-05-12 21:47] LABS: GLUCOMETER DEV NAME(LOC) 5N.1; GLUCOSE,POINT OF CARE 191 MG/DL (70-110)
[2020-05-13 05:55] VITALS: BP 104/59
[2020-05-13] MEDS: INSULIN LISPRO 100 UNITS/ML SQ PRN ×3 (06:01→18:22)
[2020-05-13 07:14] VITALS: BP 138/72
[2020-05-13 07:47] LABS: BASOPHILS % (AUTO) 0.7 % (0.0-2.0); HEMATOCRIT 44.4 % (36-46); HEMOGLOBIN 13.8 g/dL (12.0-16.0); LYMPHOCYTES # (AUTO) 1.5 K/uL (1.0-4.8); LYMPHOCYTES % (AUTO) 20.1 % (22.0-44.0); MEAN CORPUSCULAR HEMOGLOBIN 25.9 pg (26.0-34.0); MEAN CORPUSCULAR HGB CONC 31.1 G/dL (31.0-37.0); MEAN CORPUSCULAR VOLUME 83 fL (80-100); MONOCYTES # (AUTO) 0.8 K/uL (0.1-1.0); MONOCYTES % (AUTO) 11.1 % (2.0-9.0); NEUTROPHILS # (AUTO) 4.7 K/uL (1.8-7.7); NEUTROPHILS % (AUTO) 65.1 % (40.0-70.0); PLATELET COUNT (AUTO) 228 K/uL (150-450); RED BLOOD CELL COUNT(AUTO) 5.33 MIL/uL (4.00-5.20); RED CELL DISTRIBUTION WIDTH 18.9 % (11.5-14.5)
[2020-05-13] MEDS: BusPIRone HCL 5 MG TABLET PO SCH ×3 (08:03→20:14)
[2020-05-13] MEDS: ASPIRIN 81 MG CHEWABLE TABLET PO SCH (08:03)
[2020-05-13] MEDS: CITALOPRAM HYDROBROMIDE 10 MG TABLET PO SCH (08:03)
[2020-05-13] MEDS: CARVEDILOL 6.25 MG TABLET PO SCH ×2 (08:03→20:14)
[2020-05-13] MEDS: DOCUSATE SODIUM 100 MG CAPSULE PO SCH ×2 (08:03→20:14)
[2020-05-13] MEDS: FAMOTIDINE 20 MG TABLET PO SCH (08:03)
[2020-05-13 08:07] LABS: ALBUMIN 2.7 g/dL (3.4-5.0); BILIRUBIN,TOTAL 1.3 mg/dL (0.1-1.0); CALCIUM, TOTAL 8.9 mg/dL (8.8-10.5); CREATININE 1.39 mg/dL (0.60-1.30); MAGNESIUM 1.9 mg/dL (1.80-2.40); POTASSIUM 3.7 mmol/L (3.5-5.1); TOTAL PROTEIN, SERUM 7.2 g/dL (6.4-8.2)
[2020-05-13 08:10] LABS: GLUCOMETER DEV NAME(LOC) 5N.3; GLUCOSE,POINT OF CARE 143 MG/DL (70-110)
[2020-05-13] MEDS: HEPARIN SODIUM 25000 UNITS/D5W 250 ML IV PRN (10:21)
[2020-05-13 11:14] VITALS: BP 108/62
[2020-05-13 11:46] LABS: PLATELET MORPHOLOGY COMMENT GIANT PLTS PRESENT
[2020-05-13] MEDS: WATER FOR INJECTION,STERILE 500 ML in DEXTROSE 5%-WATER 500 ML IV SCH (11:48)
[2020-05-13 20:19] VITALS: BP 105/57
[2020-05-13 20:28] LABS: GLUCOMETER DEV NAME(LOC) 5N.1; GLUCOSE,POINT OF CARE 180 MG/DL (70-110)
[2020-05-13 22:16] LABS: GLUCOMETER DEV NAME(LOC) 5N.3; GLUCOSE,POINT OF CARE 259 MG/DL (70-110)
[2020-05-14 00:07] VITALS: BP 145/86
[2020-05-14] MEDS: WATER FOR INJECTION,STERILE 500 ML in DEXTROSE 5%-WATER 500 ML IV SCH (02:35)
[2020-05-14 04:38] VITALS: BP 136/75
[2020-05-14] MEDS: INSULIN LISPRO 100 UNITS/ML SQ PRN ×4 (06:28→21:08)
[2020-05-14 07:03] LABS: GLUCOMETER DEV NAME(LOC) 5S.1; GLUCOSE,POINT OF CARE 192 MG/DL (70-110)
[2020-05-14 07:20] VITALS: BP 137/72
[2020-05-14 07:47] LABS: GLUCOMETER DEV NAME(LOC) 5N.1; GLUCOSE,POINT OF CARE 135 MG/DL (70-110)
[2020-05-14] MEDS: CITALOPRAM HYDROBROMIDE 10 MG TABLET PO SCH (08:22)
[2020-05-14] MEDS: FAMOTIDINE 20 MG TABLET PO SCH (08:22)
[2020-05-14] MEDS: CARVEDILOL 6.25 MG TABLET PO SCH (08:22)
[2020-05-14] MEDS: ASPIRIN 81 MG CHEWABLE TABLET PO SCH (08:22)
[2020-05-14] MEDS: BusPIRone HCL 5 MG TABLET PO SCH ×3 (08:22→21:05)
[2020-05-14] MEDS: DOCUSATE SODIUM 100 MG CAPSULE PO SCH ×2 (08:22→21:05)
[2020-05-14 09:15] LABS: BASOPHILS % (AUTO) 0.6 % (0.0-2.0); EOSINOPHILS % (AUTO) 3.9 % (1.0-6.0); HEMOGLOBIN 13.4 g/dL (12.0-16.0); LYMPHOCYTES % (AUTO) 29.3 % (22.0-44.0); MEAN CORPUSCULAR HEMOGLOBIN 25.5 pg (26.0-34.0); MEAN CORPUSCULAR HGB CONC 30.5 G/dL (31.0-37.0); MEAN CORPUSCULAR VOLUME 83 fL (80-100); MONOCYTES # (AUTO) 0.8 K/uL (0.1-1.0); MONOCYTES % (AUTO) 12.5 % (2.0-9.0); NEUTROPHILS # (AUTO) 3.6 K/uL (1.8-7.7); NEUTROPHILS % (AUTO) 53.7 % (40.0-70.0); PLATELET COUNT (AUTO) 211 K/uL (150-450); RED BLOOD CELL COUNT(AUTO) 5.28 MIL/uL (4.00-5.20); RED CELL DISTRIBUTION WIDTH 18.5 % (11.5-14.5)
[2020-05-14 09:17] LABS: PLATELET MORPHOLOGY COMMENT GIANT PLTS PRESENT
[2020-05-14 09:33] LABS: CALCIUM, TOTAL 8.8 mg/dL (8.8-10.5); CREATININE 1.24 mg/dL (0.60-1.30); MAGNESIUM 1.8 mg/dL (1.80-2.40); PHOSPHORUS 2.7 mg/dL (2.5-4.9); POTASSIUM 3.4 mmol/L (3.5-5.1)
[2020-05-14 11:29] LABS: THYROID STIMULATING HORMONE 2.37 uIU/mL (0.36-3.74)
[2020-05-14 12:00] VITALS: BP 113/64
[2020-05-14] MEDS ORDERED: POTASSIUM CHLORIDE 20 MEQ ER TABLET PO ONE (12:00)
[2020-05-14] MEDS: ACETAMINOPHEN 325 MG TABLET PO PRN (12:29)
[2020-05-14 12:39] LABS: GLUCOMETER DEV NAME(LOC) 5N.1; GLUCOSE,POINT OF CARE 227 MG/DL (70-110)
[2020-05-14 16:18] VITALS: BP 117/67
[2020-05-14 18:07] LABS: GLUCOMETER DEV NAME(LOC) 5N.3; GLUCOSE,POINT OF CARE 194 MG/DL (70-110)
[2020-05-14 20:14] VITALS: BP 103/68
[2020-05-15] VITALS (7 sets, daily range): BP systolic 100–140; BP diastolic 51–69
[2020-05-15] MEDS ORDERED: ONDANSETRON HCL 4 MG/2 ML VIAL IVP PRN (01:45)
[2020-05-15 05:29] LABS: GLUCOMETER DEV NAME(LOC) 5N.1; GLUCOSE,POINT OF CARE 170 MG/DL (70-110)
[2020-05-15] MEDS: BusPIRone HCL 5 MG TABLET PO SCH ×3 (07:59→21:22)
[2020-05-15] MEDS: DOCUSATE SODIUM 100 MG CAPSULE PO SCH ×2 (07:59→21:22)
[2020-05-15] MEDS: ASPIRIN 81 MG CHEWABLE TABLET PO SCH (07:59)
[2020-05-15] MEDS: CITALOPRAM HYDROBROMIDE 10 MG TABLET PO SCH (07:59)
[2020-05-15] MEDS: FAMOTIDINE 20 MG TABLET PO SCH (07:59)
[2020-05-15] MEDS ORDERED: ALBU8HFA IH (11:19)
[2020-05-15] MEDS ORDERED: ALPR1TAB7 PO (11:19)
[2020-05-15] MEDS ORDERED: ASPI-728 PO (11:19)
[2020-05-15] MEDS ORDERED: APIX2.5T PO (11:19)
[2020-05-15 12:45] LABS: GLUCOMETER DEV NAME(LOC) 5N.3; GLUCOSE,POINT OF CARE 136 MG/DL (70-110)
[2020-05-15 12:45] LABS: GLUCOMETER DEV NAME(LOC) 5N.3; GLUCOSE,POINT OF CARE 106 MG/DL (70-110)
[2020-05-15] MEDS: INSULIN LISPRO 100 UNITS/ML SQ PRN ×3 (12:53→21:41)
[2020-05-15] MEDS: APIXABAN 2.5 MG TABLET PO SCH (21:22)
[2020-05-15 23:32] LABS: GLUCOMETER DEV NAME(LOC) 6N.2; GLUCOSE,POINT OF CARE 156 MG/DL (70-110)
[2020-05-16 00:12] VITALS: BP 117/76
[2020-05-16 05:00] VITALS: BP 117/70
[2020-05-16 05:54] VITALS: BP 138/74
[2020-05-16 06:05] LABS: GLUCOMETER DEV NAME(LOC) 6S.1; GLUCOSE,POINT OF CARE 200 MG/DL (70-110)
[2020-05-16] MEDS: ALPRAZolam 0.5 MG TABLET PO PRN ×2 (06:47→15:34)
[2020-05-16] MEDS: INSULIN LISPRO 100 UNITS/ML SQ PRN ×3 (06:59→18:02)
[2020-05-16] MEDS: BusPIRone HCL 5 MG TABLET PO SCH ×3 (08:03→20:12)
[2020-05-16] MEDS: CITALOPRAM HYDROBROMIDE 10 MG TABLET PO SCH (08:03)
[2020-05-16] MEDS: FAMOTIDINE 20 MG TABLET PO SCH (08:03)
[2020-05-16] MEDS: APIXABAN 2.5 MG TABLET PO SCH ×2 (08:03→20:12)
[2020-05-16] MEDS: DOCUSATE SODIUM 100 MG CAPSULE PO SCH ×2 (08:04→20:12)
[2020-05-16] MEDS: ASPIRIN 81 MG CHEWABLE TABLET PO SCH (08:04)
[2020-05-16 08:28] VITALS: BP 123/84
[2020-05-16] MEDS ORDERED: ASPI-728 PO (11:47)
[2020-05-16] MEDS ORDERED: APIX2.5T PO (11:47)
[2020-05-16] MEDS ORDERED: CITA10TA99 PO (11:49)
[2020-05-16] MEDS ORDERED: BUSP5TAB20 PO (11:49)
[2020-05-16 12:34] LABS: GLUCOMETER DEV NAME(LOC) 6N.2; GLUCOSE,POINT OF CARE 156 MG/DL (70-110)
[2020-05-16 12:34] LABS: GLUCOMETER DEV NAME(LOC) 6N.2; GLUCOSE,POINT OF CARE 141 MG/DL (70-110)
[2020-05-16 17:58] LABS: GLUCOMETER DEV NAME(LOC) 6S.1; GLUCOSE,POINT OF CARE 199 MG/DL (70-110)
== END 2020-05-16 20:25 | disposition home or self-care (01) | DRG 871 ==
LOC: EMS 00:41 → 5N 04:28 → 6S 05-15 15:00
PROVIDERS: ADMIT Internal Medicine; ATTEND Internal Medicine
PROC: 30233K1 Transfusion of Nonautologous Frozen Plasma into Peripheral Vein, Percutaneous Approach (ICD-10-PCS; principal; 2020-05-01)
DX: A41.9 Sepsis, unspecified organism (principal); U07.1 COVID-19; I50.23 Acute on chronic systolic (congestive) heart failure; J12.89 Other viral pneumonia; I21.4 Non-ST elevation (NSTEMI) myocardial infarction; Z68.42 Body mass index [BMI] 45.0-49.9, adult; I42.8 Other cardiomyopathies; I13.0 Hypertensive heart and chronic kidney disease with heart failure and stage 1 through stage 4 chronic kidney disease, or unspecified chronic kidney disease; N39.0 Urinary tract infection, site not specified; E87.0 Hyperosmolality and hypernatremia; J44.0 Chronic obstructive pulmonary disease with (acute) lower respiratory infection; N17.9 Acute kidney failure, unspecified; E66.01 Morbid (severe) obesity due to excess calories; E78.5 Hyperlipidemia, unspecified; Z87.891 Personal history of nicotine dependence; Z83.3 Family history of diabetes mellitus; Z82.49 Family history of ischemic heart disease and other diseases of the circulatory system; Z79.899 Other long term (current) drug therapy; Z82.5 Family history of asthma and other chronic lower respiratory diseases; Z99.81 Dependence on supplemental oxygen; N18.9 Chronic kidney disease, unspecified; F32.9 Major depressive disorder, single episode, unspecified; E11.22 Type 2 diabetes mellitus with diabetic chronic kidney disease; T50.2X5A Adverse effect of carbonic-anhydrase inhibitors, benzothiadiazides and other diuretics, initial encounter; F41.9 Anxiety disorder, unspecified; Y92.89 Other specified places as the place of occurrence of the external cause
CPT/HCPCS: 36600; 70450; 71250; 76705; 80074; 82271; 82570; 82728; 82805; 83615; 83735; 84100; 84132; 84145; 84300; 84443; 84540; 85007; 85379; 85651; 86140; 86160; 86162; 86850; 86900; 86901; 86927; 87040; 87086; 93005; 94640; 97116; 97162; 97530; 99291; G0480; J0696; J1100; J1644; J1940; J3535; J7050; J7060; 36415-L1; 36415-TC; 71045-TC; 80076-TC; 82803-TC; U0003-CS

== ENCOUNTER 2024-10-30 02:50 | Emergency (ER) | payer MEDICARE, MEDICAID ==
[~2024-10-30] VITALS: Ht 170.2 cm; Wt 136.4 kg
[~2024-10-30 02:50] MED LIST changes: -ALBU8HFA IH; +APIX2.5T PO; +ASPI-1450 PO; -ASPI-728 PO; +BUSP5TAB20 PO; -CARV12 PO; -CEFU250T87 PO; +CITA10TA99 PO; -FLUO-191 PO; -FURO40 PO; +FURO40TA6 PO; -LISI-660 PO; +LISI-892 PO
[2024-10-30 02:55] VITALS: BP 153/93; PULSE 101; RESP 20; TEMP 97.6; O2SAT 97
[2024-10-30] MEDS ORDERED: CEPH-558 PO (05:13)
[2024-10-30] MEDS: CEPHALEXIN MONOHYDRATE 500 MG CAPSULE PO ONE (05:22)
== END 2024-10-30 05:43 | disposition home or self-care (01) ==
LOC: EMS 02:50
DX: S09.93XA Unspecified injury of face, initial encounter (principal); S09.90XA Unspecified injury of head, initial encounter; N39.0 Urinary tract infection, site not specified; F41.9 Anxiety disorder, unspecified; J45.909 Unspecified asthma, uncomplicated; F32.A Depression, unspecified; E11.9 Type 2 diabetes mellitus without complications; I11.0 Hypertensive heart disease with heart failure; I50.9 Heart failure, unspecified; F15.90 Other stimulant use, unspecified, uncomplicated; Z87.891 Personal history of nicotine dependence; Z98.51 Tubal ligation status; Z79.899 Other long term (current) drug therapy; Z79.82 Long term (current) use of aspirin; Z79.01 Long term (current) use of anticoagulants; W19.XXXA Unspecified fall, initial encounter; Y93.89 Activity, other specified; Y92.89 Other specified places as the place of occurrence of the external cause; Y99.8 Other external cause status
CPT/HCPCS: 70450; 72125; 82962; 99284